=== PATIENT | male | born 1950 | race Caucasian/White ===

== ENCOUNTER → 2017-01-11 | Outpatient (CLI) | payer BC ==
[~2017-01-11] MED LIST: CLR10 PO; FLUT0.15 NAE; GLUCTAB7 PO; MULT-506 PO; OMEG10007 PO; PRAV20TA PO; SELE50TA2 PO; VENL50TA2 PO
[2017-01-11 12:23] LABS: ALT/SGPT 25 U/L (12-78); AST/SGOT 19 U/L (15-37); BLOOD UREA NITROGEN 13 mg/dl (7-18); BUN/CREATININE RATIO 14.3 (10-20); CARBON DIOXIDE 28 mmol/L (21-32); CHLORIDE 105 mmol/L (98-107); CHOLESTEROL 201 mg/dl (0-200); CREATININE 0.88 mg/dl (0.60-1.40); GLUCOSE 91 mg/dl (70-99); POTASSIUM 4.2 mmol/L (3.5-5.1); SODIUM 141 mmol/L (136-145); TRIGLYCERIDES 136 mg/dl (0-150); VERY LOW DENSITY LIPOPROT CALC 27 mg/dl
[2017-01-11 12:26] LABS: CALCIUM 9.2 mg/dl (8.5-10.1)
[2017-01-11 12:28] LABS: CHOLESTEROL/HDL RATIO 3.2; HDL CHOLESTEROL 62 mg/dl; LDL CHOLESTEROL CALCULATED 112 mg/dl
== END | disposition home or self-care (01) ==
LOC: C.LAB1850 10:42
PROVIDERS: ATTEND Internal Medicine
DX: E78.5 Hyperlipidemia, unspecified (principal); Z12.5 Encounter for screening for malignant neoplasm of prostate

== ENCOUNTER → 2017-05-10 | Outpatient (CLI) | payer BC ==
--- NOTE | 2017-05-10 17:06 | DIAGNOSTIC IMAGING REPORT ---
R FINGER(S) MIN 2 VIEWS ROUTINE CLINICAL HISTORY: 67 years-old Male presenting with W19.XXXA FallM79.89 Swelling of thumb, [id number]. TECHNIQUE: Frontal, oblique, and lateral views the right first finger were obtained. COMPARISON: None. FINDINGS: No acute fracture or subluxation. Mild degenerative change at the first carpometacarpal articulation. An ossific fragment at the base of the first metacarpal is distinctly separate from the trapezium. No apparent fracture donation site. This may be degenerative in etiology or represent a prominent sesamoid. The first metacarpophalangeal and interphalangeal articulations do not demonstrate significant degenerative change. No radiographic evidence of soft tissue swelling. No radiopaque foreign body. IMPRESSION: No convincing evidence of acute osseous injury of the right first finger. Ossific fragment at the base of the fifth metacarpal may be degenerative in etiology or represent a prominent sesamoid. Correlate clinically for point tenderness to exclude fracture in this region. Electronically signed by: Laith Christensen M.D. 05/10/2017 5:05 PM Dictated Date/Time: 05/10/2017 5:02 PM
== END | disposition home or self-care (01) ==
LOC: C.RAD1850 16:23
PROVIDERS: ATTEND Nurse Practitioner Adult Health
DX: M79.89 Other specified soft tissue disorders (principal); W19.XXXA Unspecified fall, initial encounter

== ENCOUNTER → 2017-07-13 | Outpatient (CLI) | payer BC ==
[2017-07-13 10:06] LABS: HEMATOCRIT 44.9 % (42-52); MEAN CELL VOLUME 95.5 fL (80-100); MEAN CORPUSCULAR HEMOGLOBIN 32.3 pg (25-34); MEAN CORPUSCULAR HGB CONC 33.9 g/dl (32-36); MEAN PLATELET VOLUME 9.9 fL (7.4-10.4); PLATELET COUNT 247 K/uL (130-400); WHITE BLOOD COUNT 5.35 K/uL (4.8-10.8)
[2017-07-13 10:45] LABS: ALT/SGPT 24 U/L (12-78); AST/SGOT 20 U/L (15-37); BLOOD UREA NITROGEN 13 mg/dl (7-18); BUN/CREATININE RATIO 17.5 (10-20); CALCIUM 9.2 mg/dl (8.5-10.1); CARBON DIOXIDE 29 mmol/L (21-32); CHLORIDE 103 mmol/L (98-107); CREATININE 0.75 mg/dl (0.60-1.40); GLUCOSE 93 mg/dl (70-99); SODIUM 135 mmol/L (136-145)
[2017-07-13 10:48] LABS: CHOLESTEROL 182 mg/dl (0-200); CHOLESTEROL/HDL RATIO 2.5; HDL CHOLESTEROL 74 mg/dl; LDL CHOLESTEROL CALCULATED 84 mg/dl; TRIGLYCERIDES 121 mg/dl (0-150); VERY LOW DENSITY LIPOPROT CALC 24 mg/dl
== END | disposition home or self-care (01) ==
LOC: C.LAB1850 09:23
PROVIDERS: ATTEND Internal Medicine
DX: E78.5 Hyperlipidemia, unspecified (principal); M79.644 Pain in right finger(s)

== ENCOUNTER 2017-08-26 21:10 | Emergency (ER) | payer BC ==
[~2017-08-26] VITALS: Ht 165.1 cm; Wt 72.5 kg
[2017-08-26 21:19] VITALS: TEMP 36.5; Ht 165.1 cm; Wt 72.5 kg
[2017-08-26] MEDS ORDERED: AMOXICILLIN/CLAVULANATE TAB 875 MG TAB PO ONE (21:45)
[2017-08-26] MEDS ORDERED: DIPHTHERIA/TETANUS/PERTUSSIS 0.5 ML SYR/VIAL IM. ONE (21:45)
[2017-08-26] MEDS ORDERED: EMPTY 8 DRAM VIAL ONE (21:49)
[2017-08-26] MEDS ORDERED: AMOX875T PO (22:15)
--- NOTE | 2017-08-26 22:16 | EMERGENCY ROOM VISIT NOTE ---
ED Visit Note First contact with patient: 21:23 CHIEF COMPLAINT: Multiple dog bites HPI: Patient is a left-hand dominant 67-year-old white male who presents to the emergency department for evaluation of several dog bites that he sustained just prior to arrival. 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 The wounds were cleansed at the facility and dressed. He reports that the dogs rabies vaccinations are current. He reports that his tetanus is due this year. He complains primarily of pain at the left fourth finger. Bleeding has been controlled. REVIEW OF SYSTEMS: Review of systems as per HPI. All other systems reviewed were negative. At least 6 systems reviewed.. PMH: Electronic medical records are reviewed and summarized as above/below. See Problem List. SOCIAL HISTORY: Patient lives at home alone. He is retired. Nonsmoker. PHYSICAL EXAM: Vital Signs: Reviewed Nurse's notes. CONSTITUTIONAL: Patient is a pleasant 87-year-old white male who is awake and alert and in no acute distress. INTEGUMENTARY: The patient has a superficial puncture in the medial left eyebrow. He also has several tiny punctures on the dorsum of the left fourth finger, primarily over the PIP joint, and one at the base of the nail with some slight bruising under the nail bed. He has 2 small punctures noted just inferior to the vermilion border of the left bottom lip. He has swelling and bruising of the left upper and left bottom lip, without mucosal injury or repairable laceration. MUSCULOSKELETAL: Full range of motion of the left fourth finger. Minor bony tenderness at the PIP joint. EMERGENCY DEPARTMENT COURSE: The patient was seen and evaluated as above. His tetanus was updated and he was given his first dose of Augmentin in the emergency department. Right fourth finger x-rays were obtained and were unremarkable. He has several superficial punctures from multiple dog bites, however none require closure with sutures. Wounds were cleansed with saline and dressed with antibiotic ointment and a bandage were needed. The patient was educated on the signs and symptoms of infection for which he should return to the emergency department. He was discharged home in good condition. Medication reconciliation: I attest that I have personally reviewed the patient' s current medication list. Blood pressure screening: Patient was found to have a slightly elevated blood pressure due to circumstances. I do not believe that the patient requires hypertension monitoring. Problem List Medical Problems: (1) Cystic Kidney Disease, Unspecified Status: Chronic (2) Diverticulitis Colon (W/O Ment Of Hemorrhage) Status: Resolved (3) Dog bite of ear Status: Resolved (4) Dog bite of right thumb Status: Resolved (5) Elevated blood pressure Status: Resolved (6) Hyperlipidemia Nec/Nos Status: Chronic (7) Hypertrophy (Benign) Of Prostate W/O Urinary Obst & Oth Luts Status: Chronic (8) Laceration of left earlobe Status: Resolved Current/Historical Medications Scheduled Amoxicillin & Pot Clavulanate (Augmentin 875-125 mg), 1 TAB PO BID Fish Oil (Nancy-3), 1 CAP PO QAM Fluticasone Propionate (Nasal) (Flonase Allergy Relief), 2 SPRAY RYAN HS Fzaalucpjam-Ckulwvmmstd-Vgc C- (Glucosamine Chondroitin), 1 TAB PO QAM Loratadine (Claritin), 10 MG PO QAM Multivitamin (Multivitamin), 1 TAB PO DAILY Pravastatin (Pravachol ), 20 MG PO HS Selenium (Selenium), 1 TAB PO QAM Venlafaxine Hcl (Effexor), 50 MG PO QAM Allergies Coded Allergies: No Known Allergies (Verified , 04/14/16) Vital Signs Date Time Temp Pulse Resp B/P (MAP) Pulse Ox O2 Delivery O2 Flow Rate FiO2 08/26/17 21:19 36.5 111 18 159/100 99 Room Air Medications Administered Medications (Trade) Dose Ordered Sig/Jose Luis Route Start Time Stop Time Status Last Admin Dose Admin Diphtheria/ Pertussis/Tetanus Vacc (Adacel Inj) 0.5 ml ONCE ONCE IM. 08/26/17 21:45 08/26/17 21:46 DC 08/26/17 21:53 0.5 ML Amoxicillin/ Clavulanate Potassium (Augmentin Tab) 1,750 mg UD ONCE PO 08/26/17 21:45 08/26/17 21:46 DC 08/26/17 21:52 1,750 MG Departure Information Impression Primary Impression: Dog bite of face Additional Impression: Dog bite of finger Prescriptions Amoxicillin & Pot Clavulanate (Augmentin 875-125 mg) 1 Tab Tab 1 TAB PO BID, #14 TAB Prov: Sharon Torres PA 08/26/17 Referrals Reyes Poe M.D. (PCP) Patient Instructions My [facility] Additional Instructions Augmentin 875 mg: Take one pill 2 times daily for 7 days to prevent infection. All antibiotics can cause diarrhea. If this occurs and you feel worse or it does not resolve in 1-2 days follow up with your doctor or return to the Emergency Department as this could be signs of serious underlying problems. Any medication can cause an allergic reaction, stop the pills immediately and return to the ER for rash, hives, breathing difficulties, or swelling. Ibuprofen(Motrin, Advil) may be used for fever or pain. Use 600mg every six hours as needed. Take with food. Avoid using more than 2400mg in a 24 hour period. Do not use 2400mg per day for more than three consecutive days without physician direction. Prolonged inappropriate use can lead to stomach upset or ulcers. (AND/OR) Acetaminophen(Tylenol) may be used for fever or pain. Use 1000mg every six hours as needed. Avoid using more than 3000mg in a 24 hour period. Clean wounds daily with mild soap and water. Cover with antibiotic ointment and a bandage (if needed) until healed. Ice and elevate for swelling and pain. Return to the emergency department for any signs of infection. Problem Qualifiers Primary Impression: Dog bite of face Encounter type: initial encounter Qualified Codes: S01.85XA - Open bite of other part of head, initial encounter; W54.0XXA - Bitten by dog, initial encounter Additional Impression: Dog bite of finger Encounter type: initial encounter Qualified Codes: S61.259A - Open bite of unspecified finger without damage to nail, initial encounter; W54.0XXA - Bitten by dog, initial encounter
--- NOTE | 2017-08-26 22:18 | EMERGENCY ROOM VISIT NOTE ---
ED Visit Note First contact with patient: 21:23 Patient was seen by our PA/PATIENT FINANCIAL SERVICES COORDINATOR. I was involved in the patient's care and did evaluate the patient myself. I was involved in the care throughout the ER stay. The patient the patient presents with a dog bite. Nothing requires suturing. He was given Augmentin and is being discharged on this medication. He will watch for infection.
--- NOTE | 2017-08-26 22:23 | DIAGNOSTIC IMAGING REPORT ---
L FINGER(S) MIN 2 VIEWS ROUTINE CLINICAL HISTORY: LEFT 4TH FINGER, DOG BITE trauma COMPARISON: None. DISCUSSION: Cortical fracture base distal phalanx fourth finger. Moderate soft tissue edema. No evidence of dislocation. IMPRESSION: Small cortical fracture base distal phalanx left fourth finger. Soft tissue edema. The above report was generated using voice recognition software. It may contain grammatical, syntax or spelling errors. Electronically signed by: Blair Vang M.D. 08/26/2017 10:21 PM Dictated Date/Time: 08/26/2017 10:21 PM
[2017-08-26 22:25] VITALS: BP 154/95; PULSE 99; O2SAT 94
== END 2017-08-26 22:26 | disposition home or self-care (01) ==
LOC: C.EDB 21:11 → C.EDD 22:26
DX: S62.665A Nondisplaced fracture of distal phalanx of left ring finger, initial encounter for closed fracture (principal); S61.255A Open bite of left ring finger without damage to nail, initial encounter; S01.152A Open bite of left eyelid and periocular area, initial encounter; S01.551A Open bite of lip, initial encounter; W54.0XXA Bitten by dog, initial encounter; Q61.9 Cystic kidney disease, unspecified; N40.0 Benign prostatic hyperplasia without lower urinary tract symptoms; E78.5 Hyperlipidemia, unspecified; Z79.899 Other long term (current) drug therapy

== ENCOUNTER → 2018-01-03 | Outpatient (CLI) | payer BC ==
[2018-01-03 11:16] LABS: ALT/SGPT 21 U/L (12-78); AST/SGOT 16 U/L (15-37); BLOOD UREA NITROGEN 14 mg/dl (7-18); CALCIUM 9.2 mg/dl (8.5-10.1); CARBON DIOXIDE 33 mmol/L (21-32); CHOLESTEROL 204 mg/dl (0-200); CREATININE 0.84 mg/dl (0.60-1.40); GLUCOSE 89 mg/dl (70-99); LDL CHOLESTEROL CALCULATED 110 mg/dl; POTASSIUM 4.2 mmol/L (3.5-5.1); SODIUM 138 mmol/L (136-145)
== END | disposition home or self-care (01) ==
LOC: C.LAB1850 09:32
PROVIDERS: ATTEND Internal Medicine
DX: Z12.5 Encounter for screening for malignant neoplasm of prostate (principal); E78.5 Hyperlipidemia, unspecified

== ENCOUNTER 2024-04-19 17:20 | Observation (INO) ==
[2024-04-19] MEDS: SODIUM CHLORIDE 0.9% 1,000 ML IV STA (17:57)
[2024-04-19 18:03] LABS: Eosinophils # (auto) 0.13 K/uL (0.00-0.50); Eosinophils % (auto) 1.4 %; Hematocrit (blood only) 51.7 % (42.0-52.0); Hemoglobin 17.4 g/dl (14.0-18.0); Immature Granulocytes # (auto) 0.05 K/uL (0.01-0.20); Immature Granulocytes % (auto) 0.5 %; Lymphocytes # (auto) 2.37 K/uL (1.20-3.40); Lymphocytes % (auto) 24.9 %; Mean Corpuscular Hemoglobin 31.6 pg (25.0-34.0); Mean Corpuscular Hgb Conc 33.7 g/dL (32.0-36.0); Mean Platelet Volume 9.7 fL (9.4-12.4); Monocytes # (auto) 0.66 K/uL (0.11-0.59); Monocytes % (auto) 6.9 %; Neutrophils # (auto) 6.22 K/uL (1.40-6.50); Neutrophils % (auto) 65.3 %; Platelet Count 264 K/uL (130-400); RDW Coefficient of Variation 12.6 % (11.5-14.5); RDW Standard Deviation 43.7 fL (36.4-46.3); White Blood Count 9.53 K/ul (4.8-10.8)
[2024-04-19 18:19] LABS: Albumin Globulin Ratio 1.3 (0.9-2); Albumin Level 4.7 gm/dl (3.4-5.0); BUN Creatinine Ratio 15.9 (10-20); Calcium 9.7 mg/dl (8.6-10.3); Creatinine Clr Calc Pharmacy 67.2 ml/min; Est GFR (African American) 99.5 ml/min; Est GFR (Non-African American) 85.8 ml/min; Globulin 3.7 gm/dl (2.5-4.0); Potassium 3.9 mmol/L (3.5-5.1); Total Protein 8.4 gm/dl (6.0-8.3)
[2024-04-19] MEDS: METOPROLOL TARTRATE 1 MG/ML VIAL IV STA ×2 (18:24→21:28)
--- NOTE | 2024-04-19 18:24 | Emergency Department Note ---
Impression & Plan Dysrhythmia, Tachycardia ED Provider Note HISTORY OF PRESENT ILLNESS: Patient is a 74-year-old male presenting with palpitations. Patient reports that for the last 2 days he has been having the sensation that his heart is racing. He denies any chest pain. Reports that when his heart rate is very high he does feel slightly short of breath. Denies any DVT or PE history. He follows with cardiology for his tachycardia and is on metoprolol 100 mg daily. He denies taking any extra doses of his metoprolol today. He denies any recent changes to medications. He denies any anticoagulation use. Denies recent sick contact exposures or recent fevers. Patient reports that today with his episodes of his heart racing, he felt very faint like he was going to pass out. ROS: as above PHYSICAL EXAM: Constitutional: Patient appears in no acute distress. HENT: Head: Normocephalic and atraumatic. Eyes: EOMI, PERRL Mouth/Throat: Mucous membranes moist. Neck: Trachea midline. Neck supple. Cardiovascular: Tachycardic with regular rhythm. No murmurs, rubs or gallops. Intact distal pulses. Pulmonary/Chest: No respiratory distress. Breath sounds clear and equal bilaterally. No wheezes or rales. Abdominal: Abdomen soft, no tenderness, rebound or guarding. Musculoskeletal: No edema, tenderness or deformity noted. Skin: Warm and dry. No rash, erythema, pallor or cyanosis Psychiatric: Appropriate mood and affect for situation. Neurological: Alert and keenly responsive. CN II-XII grossly intact, moving all extremities equally and fully. MDM: - Vitals signs showed hypertension and tachycardia. - History obtained via patient. History as above. - Chronic conditions affecting care: HLD; anxiety - Differential diagnoses include, but are not limited to: Dysrhythmia; ACS; PE; electrolyte abnormality; dehydration - Order placed for continuous cardiac monitoring. At this time, monitor showed rate of 110 bpm with regular rhythm, per my interpretation. - External medical records reviewed. Cardiology visit note dated 09/01/2023 was reviewed. Patient follows in their clinic for his history of SVT. His metoprolol was increased to 100 mg daily. - EKG interpreted by myself showed atrial fibrillation. Rate tachycardic at 152 bpm. QT 284. No acute ischemic changes. - Laboratory workup interpreted by myself showed normal WBC; stable electrolytes; elevated dimer; normal troponin; slightly elevated lipase (83) - CXR negative for pneumonia, per my interpretation - CT PE negative for PE. Noted to have a right upper lobe pulmonary micronodule. - Patient given 1L NS with minimal improvement in his heart rate. He was given 5 mg IV Lopressor and his heart rate went from 160s to the low 120s to 130s. Patient was given additional 5 mg IV Lopressor with improvement of his heart rate to the low 100s. - Patient is noted to have significant dysrhythmia on telemetry. He appears to go into an atrial fibrillation with rapid rate but then will switch back into a sinus tachycardia. He occasionally has what looks like atrial tachycardia with a heart rate in the 160s, as he has multiple P waves that do not always conduct QRS complexes. - Discussion was had with pillowcase turner about patient's case and need for admission - Hospitalist, Dr. Friedman, consulted for admission - Patient admitted to [facility] service for further evaluation and management. ASSESSMENT AND PLAN: Diagnosis: Dysrhythmia; tachycardia Plan: Admit Past Med/Surg History Problem List (Updated 04/19/24 @ 23:06 by Miley Benitez MD) Tachycardia (Acute) Dysrhythmia (Acute) Supraventricular tachycardia Hyperlipidemia Vascular calcification Degenerative arthritis of knee, bilateral History of colon polyps Adjustment disorder with anxiety (Acute) Eczema (Acute) Osteoarthritis of cervical and lumbar spine (Acute) Medical History Hypercholesterolemia Osteoarthritis Anxiety History of diverticular abscess of colon History of basal cell carcinoma Diverticulitis, colon BPH w urinary obs/LUTS Adenomatous colon polyp Surgical History History of cataract surgery History of colonoscopy History of arthroscopy of left knee History of tonsillectomy S/P colectomy S/P lymph node biopsy Family History Father Dementia Mother Macular degeneration Sister Breast cancer Brother Myocardial infarction Atrial fibrillation Denies family history of Ovarian cancer Prostate cancer Lung cancer Colorectal cancer Cancer Social History Smoking Status: Former smoker Tobacco Type: Cigarettes Second Hand Exposure: No; Do You Dip or Chew Tobacco: No; Hx Alcohol Use: Yes Alcohol type: hard liquor Hx Substance Use: Yes Substance Use Type Other:: MARIJUANA> JUST AVERAGE FEW TIMES PER WEEK Preferred Language: Iraqi Communication Ability: Effective Visual Impairment: No Limitations Hearing Ability: Normal Zoology Professor Required: No Beliefs That Will Affect Care: None marital status: Single Current Living Situation: Significant Other current occupational status: retired How many Children do You have: 0 Feels Safe at Home: Yes Childhood Exposure to Second-Hand Smoke: Yes caffeine: Yes Dental Care, Regularly: Yes Physical Activity Frequency: 3-4 Times per Week Seatbelt Use: always Sunscreen Use: No Assistive Devices: Glasses Allergies Allergies Allergy/AdvReac Type Severity Reaction Status Date / Time No Known Allergies Allergy Verified 01/25/24 14:18 Home Meds Home Medications Medication Instructions Recorded Confirmed ascorbic acid (vitamin C) 500 mg 500 mg PO BID 07/18/19 04/19/24 tablet loratadine 10 mg capsule 10 mg PO DAILY PRN Allergy Symptoms 07/18/19 04/19/24 coenzyme Q10 100 mg capsule 100 mg PO QAM 09/17/19 04/19/24 fluticasone propionate 50 1 sprays intranasal DAILY PRN 09/17/19 04/19/24 mcg/actuation nasal Allergy Symptoms spray,suspension glucosamine sulfate 500 mg tablet 500 mg PO BID 09/17/19 04/19/24 (Glucosamine) vitamins A,C,O-goit-nrbhgw 4,296 1 cap PO BID 09/17/19 04/19/24 mcg-226 mg-90 mg capsule (PreserVision AREDS) cholecalciferol (vitamin D3) 50 50 mcg PO DAILY 01/16/23 04/19/24 mcg (2,000 unit) capsule (Vitamin D3) diclofenac sodium 1 % topical gel 4 g topical QID PRN Pain 01/27/23 04/19/24 (Voltaren Arthritis Pain) Previous Rx's Medication Instructions Recorded pravastatin 20 mg tablet 20 mg PO HS #90 tabs 07/20/23 venlafaxine 50 mg tablet 50 mg PO QAM #90 tabs 07/20/23 metoprolol succinate 100 mg 100 mg PO DAILY #90 tabs 09/01/23 tablet,extended release 24 hr Results & Data (ED) Vital Signs Vital Signs - 24 hr 04/19/24 17:25 04/19/24 17:54 04/19/24 18:00 Temperature 36.9 C Temperature Source Oral Pulse Rate 114 H 129 H 160 H Pulse Rate [Apical] Pulse Rate from SpO2 Sensor 136 H Pulse Rhythm [Apical] Respiratory Rate 18 24 Respiratory Effort / Characteristics Non-Labored Spontaneous Respiratory Depth Normal Respiratory Pattern Blood Pressure 117/94 139/108 H Blood Pressure [Left Arm] Blood Pressure Mean 101 118 Blood Pressure Mean [Left Arm] Blood Pressure Position [Left Arm] Pulse Oximetry 98 96 Oxygen Delivery Method Room Air Sepsis Recent Fever Within 48 Hours No Sepsis New/Unexplained Change in Mental Status No Sepsis Action Taken by Nursing No Action Required 04/19/24 19:00 04/19/24 20:47 04/19/24 21:28 Temperature Temperature Source Pulse Rate 121 H 135 H Pulse Rate [Apical] 115 H Pulse Rate from SpO2 Sensor Pulse Rhythm [Apical] Irregular Respiratory Rate 16 16 Respiratory Effort / Characteristics Non-Labored Spontaneous Respiratory Depth Normal Respiratory Pattern Regular Blood Pressure 118/80 143/76 H Blood Pressure [Left Arm] 116/80 Blood Pressure Mean 92 Blood Pressure Mean [Left Arm] 92 Blood Pressure Position [Left Arm] Semi-fowlers Pulse Oximetry 95 95 Oxygen Delivery Method Room Air Room Air Sepsis Recent Fever Within 48 Hours Sepsis New/Unexplained Change in Mental Status Sepsis Action Taken by Nursing 04/19/24 22:56 Temperature Temperature Source Pulse Rate Pulse Rate [Apical] 106 H Pulse Rate from SpO2 Sensor Pulse Rhythm [Apical] Respiratory Rate 16 Respiratory Effort / Characteristics Non-Labored Spontaneous Respiratory Depth Normal Respiratory Pattern Regular Blood Pressure Blood Pressure [Left Arm] 123/87 Blood Pressure Mean Blood Pressure Mean [Left Arm] 99 Blood Pressure Position [Left Arm] Semi-fowlers Pulse Oximetry 93 Oxygen Delivery Method Room Air Sepsis Recent Fever Within 48 Hours Sepsis New/Unexplained Change in Mental Status Sepsis Action Taken by Nursing Laboratory Data 04/19/24 17:40 04/19/24 17:40 Lab Results 04/19/24 Range/Units 17:40 WBC 9.53 (4.8-10.8) K/ul RBC 5.50 (4.70-6.10) M/uL Hgb 17.4 (14.0-18.0) g/dl Hct 51.7 (42.0-52.0) % MCV 94.0 (80.0-100.0) fL MCH 31.6 (25.0-34.0) pg MCHC 33.7 (32.0-36.0) g/dL RDW Std Deviation 43.7 (36.4-46.3) fL RDW Coeff of Emily 12.6 (11.5-14.5) % Plt Count 264 (130-400) K/uL MPV 9.7 (9.4-12.4) fL Immature Gran % (Auto) 0.5 % Neut % (Auto) 65.3 % Lymph % (Auto) 24.9 % [place] % (Auto) 6.9 % Eos % (Auto) 1.4 % Baso % (Auto) 1.0 % Neut # (Auto) 6.22 (1.40-6.50) K/uL Lymph # (Auto) 2.37 (1.20-3.40) K/uL [place] # (Auto) 0.66 H (0.11-0.59) K/uL Eos # (Auto) 0.13 (0.00-0.50) K/uL Baso # (Auto) 0.10 (0.00-0.20) K/uL Immature Gran # (Auto) 0.05 (0.01-0.20) K/uL D-Dimer 1270 H* (0-500) ug/L FEU Sodium 139 (136-145) mmol/L Potassium 3.9 (3.5-5.1) mmol/L Chloride 105 (98-107) mmol/L Carbon Dioxide 24 (21-32) mmol/L Anion Gap 10 (3-11) BUN 14 (6-23) mg/dl Creatinine 0.88 (0.6-1.4) mg/dl Est Cr Clr Drug Dosing 67.2 ml/min Est GFR ( Amer) 99.5 ml/min Est GFR (Non-Af Amer) 85.8 ml/min BUN/Creatinine Ratio 15.9 (10-20) Glucose 158 H (70-99(Fasting)) mg/dl Calcium 9.7 (8.6-10.3) mg/dl Total Bilirubin 1.0 (0.2-1.0) mg/dl AST 25 (13-39) U/L ALT 22 (7-52) U/L Alkaline Phosphatase 94 (34-104) U/L Troponin I High Sens 5.5 (0-20) pg/ml Total Protein 8.4 H (6.0-8.3) gm/dl Albumin 4.7 (3.4-5.0) gm/dl Globulin 3.7 (2.5-4.0) gm/dl Albumin/Globulin Ratio 1.3 (0.9-2) Lipase 83 H (11-82) U/L Administered Medications Discontinued Medications Sodium Chloride (Nss) 1,000 mls @ 999 mls/hr IV .Q1H1M STA Stop: 04/19/24 18:31 Last Infusion: 04/19/24 18:58 Dose: Infused Documented By: Admin: 04/19/24 17:57 Dose: 999 mls/hr Documented By: JT Sodium Chloride (Nss) 1,000 mls @ 999 mls/hr IV .Q1H1M ONE Stop: 04/19/24 18:41 Last Admin: 04/19/24 19:13 Dose: Not Given Documented By: JERRY Ioversol (Optiray 320 125ml) 119 ml IV ONCE ONE Stop: 04/19/24 20:27 Last Admin: 04/19/24 20:27 Dose: 119 ml Documented By: CASS Metoprolol Succinate (Metoprolol Succ 50mg Ext Rel Tab) 50 mg PO NOW STA Stop: 04/19/24 22:07 Last Admin: 04/19/24 23:01 Dose: 50 mg Documented By: JERRY Metoprolol Tartrate (Metoprolol Tartrate 1 Mg/Ml Vial) 5 mg IV NOW STA Stop: 04/19/24 18:20 Last Admin: 04/19/24 18:24 Dose: 5 mg Documented By: DELIO Metoprolol Tartrate (Metoprolol Tartrate 1 Mg/Ml Vial) 5 mg IV NOW STA Stop: 04/19/24 21:06 Last Admin: 04/19/24 21:28 Dose: 5 mg Documented By: JERRY Imaging Data Radiologist's Impression: Chest X-Ray 04/19/24 17:31 SINGLE VIEW CHEST CLINICAL HISTORY: Atypical chest pain FINDINGS: An AP, portable, upright chest radiograph is compared to study dated 01/16/2023. The heart is mildly enlarged noting atherosclerotic calcification of the thoracic aorta. The pulmonary vasculature is noncongested. There is mild chronic elevation of the right hemidiaphragm and bibasilar atelectasis. The lungs and pleural spaces are otherwise clear. No pneumothorax is seen. The skeletal structures are osteopenic. The bony thorax is grossly intact. IMPRESSION: Cardiomegaly with no active disease in the chest. ACT 112: Negative or not required by law. Electronically signed by: Jevean Santos M.D. 04/19/2024 7:08 PM Chest CTA 04/19/24 19:07 Exam(s): CTA CHEST EXAM: CT Angiography Chest With Intravenous Contrast CLINICAL HISTORY: Reason for exam: PE. TECHNIQUE: Axial computed tomographic angiography images of the chest with intravenous contrast. CTDI is 29.3 mGy and DLP is 645.66 mGy-cm. Automated exposure control was utilized for the study. A dose lowering technique was utilized adhering to the principles of ALARA. MIP reconstructed images were created and reviewed. COMPARISON: No relevant prior studies available. FINDINGS: Pulmonary arteries: Good pulmonary artery opacification. Mildly enlarged main pulmonary artery suggests pulmonary arterial hypertension. No evidence of pulmonary embolism. Aorta: No acute findings. No aortic aneurysm. Lungs: Subsegmental atelectasis at the lung bases. Mild emphysema. No consolidation. No mass. Right upper lobe pulmonary micronodule measuring 3 mm (series 4, image 147). Pleural space: Unremarkable. No significant effusion. No pneumothorax. Heart: Coronary artery atherosclerosis. No cardiomegaly or pericardial effusion. Bones/joints: No acute fracture. No dislocation. Soft tissues: Unremarkable. Lymph nodes: Unremarkable. No enlarged lymph nodes. IMPRESSION: 1. No evidence of pulmonary embolism. 2. Right upper lobe pulmonary micronodule measuring 3 mm (series 4, image 147). Fleischner Society Guidelines for low-risk or high-risk patients recommend that one should consider chest CT at 12 months due to the location of this nodule. Electronically signed by: Rubén Garcia M.D. 04/19/24 20:47 PM Discharge Plan Visit Data Chief Complaint: Arrhythmia/Palpitations Stated Complaint: RAPID HEART BEAT, FEEL FAINT ED Provider: Miley Benitez Discharge Problem: Dysrhythmia, Tachycardia Discharge Instructions Interventions: ED Discharge Assessment Last Done: 04/19/24 22:58 Forms Stand Alone Forms: My [facility] Prescriptions Prescriptions: No Action pravastatin 20 mg tablet 20 mg PO HS Qty: 90 3RF venlafaxine 50 mg tablet 50 mg PO QAM Qty: 90 3RF metoprolol succinate 100 mg tablet extended release 24 hr 100 mg PO DAILY Qty: 90 3RF loratadine 10 mg capsule 10 mg PO DAILY PRN (Reason: Allergy Symptoms) ascorbic acid (vitamin C) 500 mg tablet 500 mg PO BID diclofenac sodium [Voltaren Arthritis Pain] 1 % gel 4 g topical QID PRN (Reason: Pain) Rx Instructions: apply to single knee glucosamine sulfate [Glucosamine] 500 mg tablet 500 mg PO BID fluticasone propionate 50 mcg/actuation spray,suspension 1 sprays INTNAS DAILY PRN (Reason: Allergy Symptoms) coenzyme Q10 100 mg capsule 100 mg PO QAM PreserVision AREDS 14,320-226-200 oegg-gz-aumb capsule 1 cap PO BID cholecalciferol (vitamin D3) [Vitamin D3] 50 mcg (2,000 unit) Capsule 50 mcg PO DAILY Referrals Referrals: Pro,Reyes Rick MD [Primary Care Provider] -
[2024-04-19 18:26] LABS: Troponin I High Sensitivity 5.5 pg/ml (0-20)
[2024-04-19 19:06] LABS: D Dimer 1270 ug/L FEU (0-500)
--- NOTE | 2024-04-19 19:10 | XRay Report ---
SINGLE VIEW CHEST CLINICAL HISTORY: Atypical chest pain FINDINGS: An AP, portable, upright chest radiograph is compared to study dated 01/16/2023. The heart is mildly enlarged noting atherosclerotic calcification of the thoracic aorta. The pulmonary vasculatur e is noncongested. There is mild chronic elevation of the right hemidiaphragm and bibasilar atelectas is. The lungs and pleural spaces are otherwise clear. No pneumothorax is seen. The skeletal structure s are osteopenic. The bony thorax is grossly intact. IMPRESSION: Cardiomegaly with no active disease in the chest. ACT 112: Negative or not required by law. Electronically signed by: Jeevan Santos M.D. 04/19/2024 7:08 PM
[2024-04-19] MEDS: SODIUM CHLORIDE 0.9% 1,000 ML IV ONE (19:13)
[2024-04-19] MEDS: OPTIRAY 320 125ml IV ONE (20:27)
--- NOTE | 2024-04-19 20:48 | CT Scan Report ---
Exam(s): CTA CHEST EXAM: CT Angiography Chest With Intravenous Contrast CLINICAL HISTORY: Reason for exam: PE. TECHNIQUE: Axial computed tomographic angiography images of the chest with intravenous contrast. CTDI is 29.3 mGy and DLP is 645.66 mGy-cm. Automated exposure control was utilized for the study. A dose lowering technique was utilized adhering to the principles of ALARA. MIP reconstructed images were created and reviewed. COMPARISON: No relevant prior studies available. FINDINGS: Pulmonary arteries: Good pulmonary artery opacification. Mildly enlarged main pulmonary artery suggests pulmonary arterial hypertension. No evidence of pulmonary embolism. Aorta: No acute findings. No aortic aneurysm. Lungs: Subsegmental atelectasis at the lung bases. Mild emphysema. No consolidation. No mass. Right upper lobe pulmonary micronodule measuring 3 mm (series 4, image 147). Pleural space: Unremarkable. No significant effusion. No pneumothorax. Heart: Coronary artery atherosclerosis. No cardiomegaly or pericardial effusion. Bones/joints: No acute fracture. No dislocation. Soft tissues: Unremarkable. Lymph nodes: Unremarkable. No enlarged lymph nodes. IMPRESSION: 1. No evidence of pulmonary embolism. 2. Right upper lobe pulmonary micronodule measuring 3 mm (series 4, image 147). Fleischner Society Guidelines for low-risk or high-risk patients recommend that one should consider chest CT at 12 months due to the location of this nodule. Electronically signed by: Rubén Garcia M.D. 04/19/24 20:47 PM
--- NOTE | 2024-04-19 22:11 | History & Physical Report ---
Date of Service April 19, 2024 Assessment & Plan (1) Dysrhythmia: Plan: 74yo male presenting with feeling of near syncope. Found to be in tachyarrhythmia on monitor. Appears to be atrial fibrillation, possibly atrial flutter on EKG give rate of 152 and resistance to medications? Patient with no prior record of atrial fibrillation/atrial flutter. He has had SVT in the past for which he was taking Metoprolol. Patient has been given several doses of IV Metoprolol as well as PO Metoprolol with minimal improvement in rate -Will give Diltiazem 10mg IV now -Continue metoprolol 100mg po daily -HRMDP-0-Jzmy score 2 based on age - recommend initiating anticoagulation with Eliquis - patient with no contraindication to such -Check 2D echo -Consider Cardiology consultation if rate remains elevated (2) Elevated d-dimer: Plan: Elevated D-dimer of 1270 -CTA Chest NEGATIVE FOR PE (3) Lung nodule: Plan: RUL pulmonary micronodule measuring 3mm -Followup as necessary Plan Chronic Medical Conditions: Hyperlipidemia -Continue Pravastatin Anxiety -Continue Venlafaxine F/E/N - LR at 125mL/hr x 1L ordered, electrolytes WNL PPx - Apixaban Code- Full Dispo - Admit to PCU History of Present Illness Chief Complaint: tachycardia, new atrial fibrillation Primary Care Provider: Reyes Poe MD Bharat Mendez is a 74yo male with history of HLP, Anxiety and prior episodes of SVT presenting with new onset atrial fibrillation. Patient notes increased heart rate over the last two days. He was monitoring his HR with his Cardio-Mobile at home. He has been NSR on occasion the likely atrial fibrillation and undetermined rhythm. Patient denies cheset pain or palpitations but has had the recurrent sensation that he was going to pass out. He has some shortness of breath as well. Otherwise denies fever, chills, abdominal pain, nausea, vomiting, diarrhea. He rarely drinks EtOH, minimal caffeine intake and has not been using OTC Medications or stimulants. No prior AF. He did have SVT in the past - experienced palpitations at that time. He has been on metoprolol. Was following with Cardiology - last seen in August 2023. Some discussion about ablation but patient has been well controlled with medications. Allergies Allergy/AdvReac Type Severity Reaction Status Date / Time No Known Allergies Allergy Verified 01/25/24 14:18 Home Medications Medication Instructions Recorded Confirmed Type ascorbic acid (vitamin C) 500 mg 500 mg PO BID 07/18/19 04/19/24 History tablet loratadine 10 mg capsule 10 mg PO DAILY PRN Allergy Symptoms 07/18/19 04/19/24 History coenzyme Q10 100 mg capsule 100 mg PO QAM 09/17/19 04/19/24 History fluticasone propionate 50 1 sprays intranasal DAILY PRN 09/17/19 04/19/24 History mcg/actuation nasal Allergy Symptoms spray,suspension glucosamine sulfate 500 mg tablet 500 mg PO BID 09/17/19 04/19/24 History (Glucosamine) vitamins A,C,B-prbe-cajxdb 4,296 1 cap PO BID 09/17/19 04/19/24 History mcg-226 mg-90 mg capsule (PreserVision AREDS) cholecalciferol (vitamin D3) 50 50 mcg PO DAILY 01/16/23 04/19/24 History mcg (2,000 unit) capsule (Vitamin D3) diclofenac sodium 1 % topical gel 4 g topical QID PRN Pain 01/27/23 04/19/24 History (Voltaren Arthritis Pain) pravastatin 20 mg tablet 20 mg PO HS #90 tabs 07/20/23 04/19/24 Rx venlafaxine 50 mg tablet 50 mg PO QAM #90 tabs 07/20/23 04/19/24 Rx metoprolol succinate 100 mg 100 mg PO DAILY #90 tabs 09/01/23 04/19/24 Rx tablet,extended release 24 hr Past Med/Surg History Problem List (Updated 04/20/24 @ 07:28 by Bethanie Friedman DO) Lung nodule Elevated d-dimer Tachycardia (Acute) Dysrhythmia (Acute) Supraventricular tachycardia Hyperlipidemia Vascular calcification Degenerative arthritis of knee, bilateral History of colon polyps Adjustment disorder with anxiety (Acute) Eczema (Acute) Osteoarthritis of cervical and lumbar spine (Acute) Medical History Hypercholesterolemia Osteoarthritis Anxiety History of diverticular abscess of colon PT REPORTS HX ABCESS OF COLON/SURGERY FOR History of basal cell carcinoma & REMOVED Diverticulitis, colon BPH w urinary obs/LUTS DENIES Adenomatous colon polyp HX COLON POLYP Surgical History History of cataract surgery LEFT/ RIGHT History of colonoscopy History of arthroscopy of left knee History of tonsillectomy S/P colectomy HX Partial, Sigmoid S/P lymph node biopsy Family History Father Dementia Mother Macular degeneration Sister Breast cancer Brother Myocardial infarction Atrial fibrillation Denies family history of Ovarian cancer Prostate cancer Lung cancer Colorectal cancer Cancer Social History Smoking Status: Former smoker Tobacco Type: Cigarettes Second Hand Exposure: No; Do You Dip or Chew Tobacco: No; Tobacco Cessation Education Requested by Patient: No Hx Alcohol Use: Yes Alcohol type: hard liquor Hx Substance Use: No Preferred Language: Moldovan Communication Ability: Effective Visual Impairment: No Limitations Hearing Ability: Normal Shipping Agent Required: No Beliefs That Will Affect Care: None marital status: Single Current Living Situation: Alone current occupational status: retired How many Children do You have: 0 Other Information That Helps Us Care for You: No Feels Safe at Home: Yes Safety Concerns: Feels Safe At This Time Childhood Exposure to Second-Hand Smoke: Yes caffeine: Yes Dental Care, Regularly: Yes Physical Activity Frequency: 3-4 Times per Week Seatbelt Use: always Sunscreen Use: No Assistive Devices: Glasses Review of Systems Review of Systems: All systems reviewed & are unremarkable except as noted in HPI & below Physical Exam Physical Exam: General: patient resting comfortably, NAD, non-toxic in appearance, AA&O x 4 Skin: warm, dry, intact, no rashes or lesions HEENT: NC/AT, PERRL, EOMI, anicteric sclera, conjunctiva without injection, external ear normal to inspection and nontender, nares patent, moist mucus membranes, dentition intact, no oropharyngeal lesions, neck supple, trachea midline, no LAD, no thyromegaly, no JVD Heart: +S1/S2, irregularly irregular, no m/r/g Lungs: equal air entry bilaterally, no rales/rhonchi/wheezes Abd: +BS, soft, NT/ND, no masses/organomegaly/ascites Ext: warm, 2+ pulses in UE/LE bilaterally, no clubbing/cyanosis or edema Neuro: nonfocal, patient AA&O x 4, speech intact, no facial droop, moving all extremities on command with equal strength 5/5 Results & Data Results & Data Vital Signs (Past 12 Hours) Vital Signs Temp Pulse Pulse Resp BP BP Pulse Ox 04/19/24 21:28 135 H 143/76 H 04/19/24 20:47 115 H 16 116/80 95 04/19/24 19:00 121 H 16 118/80 95 04/19/24 18:00 160 H 24 139/108 H 96 04/19/24 17:54 129 H 04/19/24 17:25 36.9 C 114 H 18 117/94 98 O2 Del Method 04/19/24 21:28 04/19/24 20:47 Room Air 04/19/24 19:00 Room Air 04/19/24 18:00 04/19/24 17:54 04/19/24 17:25 Room Air Laboratory Results Laboratory Results WBC 9.53 K/ul (4.8-10.8) 04/19/24 17:40 RBC 5.50 M/uL (4.70-6.10) 04/19/24 17:40 Hgb 17.4 g/dl (14.0-18.0) 04/19/24 17:40 Hct 51.7 % (42.0-52.0) 04/19/24 17:40 MCV 94.0 fL (80.0-100.0) 04/19/24 17:40 MCH 31.6 pg (25.0-34.0) 04/19/24 17:40 MCHC 33.7 g/dL (32.0-36.0) 04/19/24 17:40 RDW Std Deviation 43.7 fL (36.4-46.3) 04/19/24 17:40 RDW Coeff of Emily 12.6 % (11.5-14.5) 04/19/24 17:40 Plt Count 264 K/uL (130-400) 04/19/24 17:40 MPV 9.7 fL (9.4-12.4) 04/19/24 17:40 Immature Gran % (Auto) 0.5 % 04/19/24 17:40 Neut % (Auto) 65.3 % 04/19/24 17:40 Lymph % (Auto) 24.9 % 04/19/24 17:40 Quay % (Auto) 6.9 % 04/19/24 17:40 Eos % (Auto) 1.4 % 04/19/24 17:40 Baso % (Auto) 1.0 % 04/19/24 17:40 Neut # (Auto) 6.22 K/uL (1.40-6.50) 04/19/24 17:40 Lymph # (Auto) 2.37 K/uL (1.20-3.40) 04/19/24 17:40 Quay # (Auto) 0.66 K/uL (0.11-0.59) H 04/19/24 17:40 Eos # (Auto) 0.13 K/uL (0.00-0.50) 04/19/24 17:40 Baso # (Auto) 0.10 K/uL (0.00-0.20) 04/19/24 17:40 Immature Gran # (Auto) 0.05 K/uL (0.01-0.20) 04/19/24 17:40 D-Dimer 1270 ug/L FEU (0-500) H* 04/19/24 17:40 Sodium 139 mmol/L (136-145) 04/19/24 17:40 Potassium 3.9 mmol/L (3.5-5.1) 04/19/24 17:40 Chloride 105 mmol/L (98-107) 04/19/24 17:40 Carbon Dioxide 24 mmol/L (21-32) 04/19/24 17:40 Anion Gap 10 (3-11) 04/19/24 17:40 BUN 14 mg/dl (6-23) 04/19/24 17:40 Creatinine 0.88 mg/dl (0.6-1.4) 04/19/24 17:40 Est Cr Clr Drug Dosing 67.2 ml/min 04/19/24 17:40 Est GFR ( Amer) 99.5 ml/min 04/19/24 17:40 Est GFR (Non-Af Amer) 85.8 ml/min 04/19/24 17:40 BUN/Creatinine Ratio 15.9 (10-20) 04/19/24 17:40 Glucose 158 mg/dl (70-99(Fasting)) H 04/19/24 17:40 Calcium 9.7 mg/dl (8.6-10.3) 04/19/24 17:40 Magnesium 2.2 mg/dl (1.7-2.4) 04/19/24 17:40 Total Bilirubin 1.0 mg/dl (0.2-1.0) 04/19/24 17:40 AST 25 U/L (13-39) 04/19/24 17:40 ALT 22 U/L (7-52) 04/19/24 17:40 Alkaline Phosphatase 94 U/L (34-104) 04/19/24 17:40 Troponin I High Sens 5.5 pg/ml (0-20) 04/19/24 17:40 Total Protein 8.4 gm/dl (6.0-8.3) H 04/19/24 17:40 Albumin 4.7 gm/dl (3.4-5.0) 04/19/24 17:40 Globulin 3.7 gm/dl (2.5-4.0) 04/19/24 17:40 Albumin/Globulin Ratio 1.3 (0.9-2) 04/19/24 17:40 Lipase 83 U/L (11-82) H 04/19/24 17:40 TSH 1.545 uIu/ml (0.300-4.500) 04/19/24 17:40 TSH Cancelled 04/19/24 17:40 Impressions Chest X-Ray 04/19/24 17:31 SINGLE VIEW CHEST CLINICAL HISTORY: Atypical chest pain FINDINGS: An AP, portable, upright chest radiograph is compared to study dated 01/16/2023. The heart is mildly enlarged noting atherosclerotic calcification of the thoracic aorta. The pulmonary vasculature is noncongested. There is mild chronic elevation of the right hemidiaphragm and bibasilar atelectasis. The lungs and pleural spaces are otherwise clear. No pneumothorax is seen. The skeletal structures are osteopenic. The bony thorax is grossly intact. IMPRESSION: Cardiomegaly with no active disease in the chest. ACT 112: Negative or not required by law. Electronically signed by: Jeevan Santos M.D. 04/19/2024 7:08 PM Chest CTA 04/19/24 19:07 Exam(s): CTA CHEST EXAM: CT Angiography Chest With Intravenous Contrast CLINICAL HISTORY: Reason for exam: PE. TECHNIQUE: Axial computed tomographic angiography images of the chest with intravenous contrast. CTDI is 29.3 mGy and DLP is 645.66 mGy-cm. Automated exposure control was utilized for the study. A dose lowering technique was utilized adhering to the principles of ALARA. MIP reconstructed images were created and reviewed. COMPARISON: No relevant prior studies available. FINDINGS: Pulmonary arteries: Good pulmonary artery opacification. Mildly enlarged main pulmonary artery suggests pulmonary arterial hypertension. No evidence of pulmonary embolism. Aorta: No acute findings. No aortic aneurysm. Lungs: Subsegmental atelectasis at the lung bases. Mild emphysema. No consolidation. No mass. Right upper lobe pulmonary micronodule measuring 3 mm (series 4, image 147). Pleural space: Unremarkable. No significant effusion. No pneumothorax. Heart: Coronary artery atherosclerosis. No cardiomegaly or pericardial effusion. Bones/joints: No acute fracture. No dislocation. Soft tissues: Unremarkable. Lymph nodes: Unremarkable. No enlarged lymph nodes. IMPRESSION: 1. No evidence of pulmonary embolism. 2. Right upper lobe pulmonary micronodule measuring 3 mm (series 4, image 147). Fleischner Society Guidelines for low-risk or high-risk patients recommend that one should consider chest CT at 12 months due to the location of this nodule. Electronically signed by: Rubén Garcia M.D. 04/19/24 20:47 PM ECG Additional Comments: EKG with atrial fibrillation at 152bpm, normal axis, QRS=80, WFF=645, some rate related changes in inferior leads PG Care Time/CCT Total # of Minutes Spent Total Time Spent with Patient: Total time spent is greater than 50% in coordination of care (as documented) at patient's floor/unit and/or counseling patient: Coding Level of Care Code 04511 INT INP/OBS CARE 3/75MIN Diagnoses Dysrhythmia I49.9 Elevated d-dimer R79.89 Lung nodule R91.1
--- OUTSIDE RECORDS SUMMARY | 2024-04-19 22:29 | External Medical Summary | Continuity of Care Document ---
Author Name Unknown Organization [facility] [address] [facility] Address [address] [facility] [address] [phone] Care Team Providers Care Congressional Assistant Name Role Phone Reyes Poe Primary Care Physician [phone] Encounter [facility] [id number] Date(s): 03/20/24 - 03/20/24 [facility] [address] [facility] [address] [phone] Encounter Diagnosis Hx of skin malignancy(Discharge Diagnosis) - 03/20/24 History of eczema(Discharge Diagnosis) - 03/20/24 Actinic keratoses(Discharge Diagnosis) - 03/20/24 Seborrheic keratoses(Discharge Diagnosis) - 03/20/24 Onychomycosis(Discharge Diagnosis) - 03/20/24 Encounter for follow-up examination after completed treatment for cancer (Discharge Diagnosis) - 03/20/24 Discharge Disposition: Home or Self Care Attending Physician: MD Todd Sara B Allergies, Adverse Reactions, Alerts No Known Allergies Assessment and Plan Extracted from: Title:Dermatology Office Visit Note Author:Gordon brown MD, Sara B Date:03/20/24 1.Hx of skin malignancy Warning signs of skin cancer were reviewed. Sun protection reviewed. Follow-up in 12months, sooner for any changing or growing lesions or acute concerns. I also recommended monthly self skin exams 2.History of eczema Has been quiescent 3.Actinic keratoses x1. Lesion treated with liquid nitrogen. Patient aware of possibility of infection, hypo or hyperpigmentation or scarring and did elect to proceed. They should inform me of any problems or recurrences post treatment. Care sheet given. 3.Encounter for follow-up examination after completed treatment for cancer 4.Seborrheic keratoses Chronic, within normal limits today 5.Onychomycosis Chronic, worsening, not at goal, he tried years of Penlac. Also tried some tea tree oil. Jublia now looks like it is covered under his formulary so we will prescribe that. Risks and benefits including irritation discussed. Prescription sent. Medications Claritin 10 mg oral tablet Start: 12/29/17 11:06:00 AM EDT, 1 tab, PO, Daily, PRN: as needed for allergy symptoms Start Date: 12/29/17 Status: Ordered Co Q-10 100 mg oral capsule Start: 12/31/19 10:27:00 AM EDT, 1 cap, PO, Daily Start Date: 12/31/19 Status: Ordered econazole 1% topical cream Start: 03/16/23 2:50:00 PM EDT, 1 appl, topical, bid, Disp# 30 g, Refills: 0, apply to affected areason the face and thigh, Pharmacy: [facility]/pharmacy #[id number] Start Date: 03/16/23 Status: Ordered Flonase 50 mcg/inh nasal spray Start: 12/29/17 11:06:00 AM EDT, 1 spray, each nostril, Daily Start Date: 12/29/17 Status: Ordered Jublia 10% topical solution Start: 03/20/24 1:42:00 PM EDT, 1 appl, topical, Daily, Disp# 8 mL, Refills: 1, To all toenails nightly, Pharmacy: [facility]/pharmacy #[id number] Start Date: 03/20/24 Status: Ordered Metoprolol Succinate ER 25 mg oral tablet, extended release Start: 03/16/23 2:27:00 PM EDT, 30 each, TAKE 1 TABLET BY MOUTH DAILY Start Date: 03/16/23 Status: Ordered pravastatin 20 mg oral tablet Start: 12/30/15 9:53:00 AM EDT, 1 tab, PO, Daily Start Date: 12/30/15 Status: Ordered PreserVision oral tablet Start: 12/31/19 10:27:00 AM EDT, 1 tab, PO, Daily Start Date: 12/31/19 Status: Ordered triamcinolone 0.1% topical cream Start: 01/13/22 10:47:00 AM EDT, 1 appl, topical, bid, Disp# 30 g, prn Start Date: 01/13/22 Status: Ordered venlafaxine 50 mg oral tablet Start: 12/19/12 11:29:00 AM EDT, 1 tab, PO, Daily Start Date: 12/19/12 Status: Ordered Vitamin C 500 mg oral capsule Start: 12/31/20 11:37:00 AM EDT, 1 cap, PO, bid Start Date: 12/31/20 Status: Ordered Mental Status 03/20/24 Barriers to Learning one year None evide nt Mandatory Health Literacy Documentation Yes Health Literacy Communication Barriers N ever Primary Language Maldivian Problem List Condition Confirmation Course Effective Dates Status H ealth Status Informant Anxiety Confirmed Active BCC (basal cell carcinoma) Confirmed Active History of eczema 1, 2 Confirmed Active Encounter for follow-up examination after completed treatment for cancer Confirmed Active History of malignant neoplasm of skin Confirmed Active Actinic keratoses Confirmed Active Onychomycosis Confirmed Active Seborrheic keratoses Confirmed Active 1x1 in the past 2dermatitis Diagnosis Diagnosis Type Effective Dates Health Status Clinical Service Informant Actinic keratoses Discharge Diagnosis 03/20/24 Hx of skin malignancy Discharge Diagnosis 03/20/24 Onychomycosis Discharge Diagnosis 03/20/24 History of eczema Discharge Diagnosis 03/20/24 Seborrheic keratoses Discharge Diagnosis 03/20/24 Encounter for follow-up examination after completed treatment for cancer Discharge Diagnosis 03/20/24 Procedures Procedure Date Related Diagnosis Body Site Status Resection of colon for interposition 2009 Completed Tonsillectomy 1958 Completed Cataract Completed Surgery 1 Completed 1knee repair Social History Social History Type Response Smoking Status Former Smoker, quit > 1 yr Sex Male Sex Representation Male (finding) Dermatology Outpatient Note * MD Perez, Laura Powers: PERFORM Event Display: Dermatology Outpt Note Authored Date: [id number] Chief Complaint skin check- no concerns History of Present Illness The patient is a pleasant 73-year-old male new to me today but not new to the office. Usually sees Dr. Mcgowan. Has a history of basal cell carcinoma on the chest. Here today for skin check. Physical Exam Gen: Well appearing patient, no acute distress. Alert and oriented x3. Good mood. Skin examination completed of face, eyelids, scalp, hair, lips, ears, neck, chest, back, abdomen,upper and lower extremities bilaterally including hands, feet, fingers and toes, fingernails and toenails, pt declined buttocks and groin. Patient has 1 actinic keratoses on his right central posterior scalp. He has numerous seborrheic keratoses. No evidence of recurrent skin cancer. Onychomycosis in toenails throughout. No active eczema. Assessment/Plan 1.Hx of skin malignancy Warning signs of skin cancer were reviewed. Sun protection reviewed. Follow-up in 12months, sooner for any changing or growing lesions or acute concerns. I also recommended monthly self skinexams 2.History of eczema Has been quiescent 3.Actinic keratoses x1. Lesion treated with liquid nitrogen. Patient aware of possibility of infection, hypo or hyperpigmentation or scarring and did elect to proceed. They should inform me of any problems or recurrences post treatment. Care sheet given. 3.Encounter for follow-up examination after completed treatment for cancer 4.Seborrheic keratoses Chronic, within normal limits today 5.Onychomycosis Chronic, worsening, not at goal, he tried years of Penlac. Also tried some tea tree oil. Jublia now looks like it is covered under his formulary so we will prescribe that. Risks and benefits including irritation discussed. Prescription sent. Problem List/Past Medical History Ongoing Actinic keratoses Anxiety BCC (basal cell carcinoma) Encounter for follow-up examination after completed treatment for cancer History of eczema History of malignant neoplasm of skin Onychomycosis Seborrheic keratoses Procedure/Surgical History Resection of colon for interposition| Service Date: 2009Tonsillectomy| Service Date: 1958SurgeryCataract Medications ascorbic acid(Vitamin C 500 mg oral capsule), 500 mg= 1 cap, PO, bid econazole topical(econazole 1% topical cream), 1 appl, topical, bid efinaconazole topical(Jublia 10% topical solution), 1 appl, topical, Daily, 1 refills fluticasone nasal(Flonase 50 mcg/inh nasal spray), 1 spray, each nostril, Daily loratadine(Claritin 10 mg oral tablet), 10 mg= 1 tab, PO, Daily, PRN metoprolol(Metoprolol Succinate ER 25 mg oral tablet, extended release) multivitamin with minerals(PreserVision oral tablet), 1 tab, PO, Daily pravastatin(pravastatin 20 mg oral tablet), 20 mg= 1 tab, PO, Daily triamcinolone topical(triamcinolone 0.1% topical cream), 1 appl, topical, bid ubiquinone(Co Q-10 100 mg oral capsule), 100 mg= 1 cap, PO, Daily venlafaxine(venlafaxine 50 mg oral tablet), 50 mg= 1 tab, PO, Daily Allergies NKA Social History Smoking Status Former Smoker, quit > 1 yr Electronic Signature on File Electronically Reviewed/Signed by: Laura Todd MD Author Signature Dt/Tm:03/20/2024 01:48 PM Department of Dermatology [facility] Patient Care team information Care Team Personnel Name: MD Poe Jeffrey W Position: Referring DIRECT Member Role: Primary Care Provider Address: [facility] [address] [place] [address] Care Team Related Persons Name: ABRAN MORGAN Name: CHIDI MORGAN"
[2024-04-19] MEDS: METOPROLOL SUCC 50MG EXT REL TAB PO STA (23:01)
[2024-04-19] MEDS ORDERED: ACETAMINOPHEN 325 MG TAB PO PRN (23:16)
[2024-04-20] MEDS: LACTATED RINGER'S 1,000 ML IV SCH (00:14)
[2024-04-20 00:16] LABS: Magnesium 2.2 mg/dl (1.7-2.4)
[2024-04-20] MEDS: APIXABAN 5 MG TABLET PO ONE (00:16)
[2024-04-20 07:23] VITALS: RESP 18; TEMP 97.7
[2024-04-20] MEDS: dilTIAZem HCl 5 MG/ML 5 ML VIAL IV STA (07:47)
[2024-04-20 07:52] LABS: BUN Creatinine Ratio 14.1 (10-20); Creatinine Clr Calc Pharmacy 69.6 ml/min; Est GFR (African American) 100.9 ml/min; Est GFR (Non-African American) 87.1 ml/min; Potassium 4.4 mmol/L (3.5-5.1)
[2024-04-20] MEDS: APIXABAN 5 MG TABLET PO SCH (08:05)
[2024-04-20] MEDS: METOPROLOL SUCC 50MG EXT REL TAB PO SCH (08:05)
[2024-04-20] MEDS: VENLAFAXINE HCL 50 MG TAB PO SCH (08:06)
[2024-04-20] MEDS: METOPROLOL TARTRATE 1 MG/ML VIAL IV STA (09:31)
[2024-04-20 11:01] VITALS: O2SAT 98
--- NOTE | 2024-04-20 11:25 | Cardiology Consultation ---
Date of Consultation April 20, 2024 Assessment & Plan (1) Paroxysmal atrial fibrillation: (2) Supraventricular tachycardia: (3) Near syncope: Plan ASSESSMENT/PLAN: 1. Paroxysmal atrial fibrillation: Intermittently symptomatic with near syncope. Significantly elevated heart rate despite metoprolol succinate 100 mg chronically. Spontaneously converted. Has been occurring frequently over the past 2 months but intermittently throughout 2023 based on [facility] findi ngs. Recommend rhythm control. Discussed the diagnosis in detail and treatment strategies. Discussed antiarrhythmic therapy versus evaluation for ablation. Given that ablation will likely take some time to arrange, if he agrees to do such, recommend antiarrhythmic therapy now. Given age and the fact that he has not had ischemic evaluation, avoiding 1C agents for now. Start Trinate around 400 mg twice daily. Reduce metoprolol succinate to 50 mg daily to avoid significant bradycardia. Continue to monitor at home with [facility]. Follow-up closely with his primary certified driver examiner/escapement maker. Continue anticoagulation for stroke risk reduction. 2. History of SVT: A-fib with RVR during this hospital stay. Follows with EP. 3. Near syncope: Has correlated with A-fib with RVR. 4. Disposition: Can be discharged home from a cardiology perspective. Close follow-up with his escapement maker. Considered and discussed potential atrial fibrillation ablation as reasonable option. Antiarrhythmic therapy for now. Patient care communicated with Dr. Singer of the primary hospitalist service. Thank you for allowing me to participate in the care of your patient. Please call for any other questions or concerns. Sincerely, Nael Paige M.D. History of Present Illness Reason for Consultation: atrial fibrillation Requesting Physician: Clayton Singer Attending Physician: Clayton Singer History of Present Illness Mr. Mendez is a very pleasant 74-year-old gentleman with a history significant for SVT who presented with atrial fibrillation and rapid ventricular response. He also has a history of dyslipidemia. His primary certified driver examiner is Dr. Waters. He felt "faint" while sitting and checked his [employer] mobile which suggested atrial fibrillation with rapid ventricular response. He brought with him tracings from his [facility] and he has been having atrial fibrillation with rapid ventricular response going all the way back to October 06, 2023. He does not check it daily. He sometimes checks his telemetry just because another times due to near syncope. He has had several examples of A-fib with RVR and also sinus rhythm. It appears as though the frequency of A-fib with RVR has increased more recently. On 04/19/2024, he was noted to be in sinus rhythm at 1401 and then in A-fib at 1536. While here, he has received beta-kendell both intravenous and also additional dose of metoprolol succinate. His heart rate has remained elevated. He was asymptomatic while here however with no further near syncope. He denies p alpitations at any time. He denies chest pain, shortness of breath, syncope, edema, melena, hematochezia, or hematuria. He has been compliant with home beta-kendell. He denies any recent nausea, vo miting, diarrhea, fevers or chills. 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 During our conversation, he converted to sinus rhythm on 04/20/2024 at 10:22 AM. He did not notice any difference in how he felt but we were notified by nursing staff and a documented telemetry strip. Review of systems: As above. Review of systems otherwise negative/unremarkable. Family history: Brother with A-fib. Brother with MO. Mother received pacemaker in her 80s. Social history: Quit smoking in 1978. Rare alcohol. No drugs. Never . No children. Lives alone. 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 Unaccompanied. Allergies Allergy/AdvReac Type Severity Reaction Status Date / Time No Known Allergies Allergy Verified 01/25/24 14:18 Home Medications Medication Instructions Recorded Confirmed Type ascorbic acid (vitamin C) 500 mg 500 mg PO BID 07/18/19 04/19/24 History tablet loratadine 10 mg capsule 10 mg PO DAILY PRN Allergy Symptoms 07/18/19 04/19/24 History coenzyme Q10 100 mg capsule 100 mg PO QAM 09/17/19 04/19/24 History fluticasone propionate 50 1 sprays intranasal DAILY PRN 09/17/19 04/19/24 History mcg/actuation nasal Allergy Symptoms spray,suspension glucosamine sulfate 500 mg tablet 500 mg PO BID 09/17/19 04/19/24 History (Glucosamine) vitamins A,C,Q-xiou-igmegr 4,296 1 cap PO BID 09/17/19 04/19/24 History mcg-226 mg-90 mg capsule (PreserVision AREDS) cholecalciferol (vitamin D3) 50 50 mcg PO DAILY 01/16/23 04/19/24 History mcg (2,000 unit) capsule (Vitamin D3) diclofenac sodium 1 % topical gel 4 g topical QID PRN Pain 01/27/23 04/19/24 History (Voltaren Arthritis Pain) pravastatin 20 mg tablet 20 mg PO HS #90 tabs 07/20/23 04/19/24 Rx venlafaxine 50 mg tablet 50 mg PO QAM #90 tabs 07/20/23 04/19/24 Rx metoprolol succinate 100 mg 100 mg PO DAILY #90 tabs 09/01/23 04/19/24 Rx tablet,extended release 24 hr Problem List (Updated 04/20/24 @ 11:30 by Gab Paige MD) Paroxysmal atrial fibrillation Lung nodule Elevated d-dimer Tachycardia (Acute) Dysrhythmia (Acute) Supraventricular tachycardia Hyperlipidemia Vascular calcification Degenerative arthritis of knee, bilateral History of colon polyps Adjustment disorder with anxiety (Acute) Eczema (Acute) Osteoarthritis of cervical and lumbar spine (Acute) Patient History Medical History Hypercholesterolemia Osteoarthritis Anxiety History of diverticular abscess of colon PT REPORTS HX ABCESS OF COLON/SURGERY FOR History of basal cell carcinoma & REMOVED Diverticulitis, colon BPH w urinary obs/LUTS DENIES Adenomatous colon polyp HX COLON POLYP Surgical History History of cataract surgery LEFT/ RIGHT History of colonoscopy History of arthroscopy of left knee History of tonsillectomy S/P colectomy HX Partial, Sigmoid S/P lymph node biopsy Family History Father Dementia Mother Macular degeneration Sister Breast cancer Brother Myocardial infarction Atrial fibrillation Denies family history of Ovarian cancer Prostate cancer Lung cancer Colorectal cancer Cancer Social History Smoking Status: Former smoker Tobacco Type: Cigarettes Second Hand Exposure: No; Do You Dip or Chew Tobacco: No; Tobacco Cessation Education Requested by Patient: No Hx Alcohol Use: Yes Alcohol type: hard liquor Hx Substance Use: No Preferred Language: Czech Communication Ability: Effective Visual Impairment: No Limitations Hearing Ability: Normal Community Life Director Required: No Beliefs That Will Affect Care: None marital status: Single Current Living Situation: Alone current occupational status: retired How many Children do You have: 0 Other Information That Helps Us Care for You: No Feels Safe at Home: Yes Safety Concerns: Feels Safe At This Time Childhood Exposure to Second-Hand Smoke: Yes caffeine: Yes Dental Care, Regularly: Yes Physical Activity Frequency: 3-4 Times per Week Seatbelt Use: always Sunscreen Use: No Assistive Devices: Glasses Physical Exam Physical Exam: Gen.: No acute distress. Alert and oriented. HEENT: Anicteric sclera. Neck: No JVD. No bruits. Normal carotid upstrokes bilaterally. Cardiac: Regular. Normal rate. Normal S1-S2. No murmurs, rubs, or gallops. Pulmonary: Clear to auscultation bilaterally without wheezes, rales, or rhonchi. Abdomen: Soft, nontender, nondistended, with normoactive bowel sounds. No bruits noted. Extremities: 2+ radial pulses bilaterally. 2+ posterior tibialis pulses bilaterally. No edema or cyanosis. Psychiatric: Affect appears appropriate. Results & Data Vital Signs (Past 12 Hours) Vital Signs Temp Pulse Pulse Resp BP BP Pulse Ox 04/20/24 09:31 168 H 130/66 04/20/24 07:22 36.5 C 90 18 113/75 96 04/20/24 05:02 36.6 C 137 H 17 110/66 93 04/20/24 00:36 36.7 C 114 H 16 94/65 L 97 04/19/24 22:56 106 H 16 123/87 93 O2 Del Method 04/20/24 09:31 04/20/24 07:22 Room Air 04/20/24 05:02 Room Air 04/20/24 00:36 Room Air 04/19/24 22:56 Room Air Laboratory Results Laboratory Results - last 24 hr 04/19/24 04/19/24 04/20/24 17:40 17:40 06:41 WBC 9.53 RBC 5.50 Hgb 17.4 Hct 51.7 MCV 94.0 MCH 31.6 MCHC 33.7 RDW Std Deviation 43.7 RDW Coeff of Emily 12.6 Plt Count 264 MPV 9.7 Immature Gran % (Auto) 0.5 Neut % (Auto) 65.3 Lymph % (Auto) 24.9 [place] % (Auto) 6.9 Eos % (Auto) 1.4 Baso % (Auto) 1.0 Neut # (Auto) 6.22 Lymph # (Auto) 2.37 [place] # (Auto) 0.66 H Eos # (Auto) 0.13 Baso # (Auto) 0.10 Immature Gran # (Auto) 0.05 D-Dimer 1270 H* Sodium 139 141 Potassium 3.9 4.4 Chloride 105 106 Carbon Dioxide 24 29 Anion Gap 10 6 BUN 14 12 Creatinine 0.88 0.85 Est Cr Clr Drug Dosing 67.2 69.6 Est GFR ( Amer) 99.5 100.9 Est GFR (Non-Af Amer) 85.8 87.1 BUN/Creatinine Ratio 15.9 14.1 Glucose 158 H 92 Calcium 9.7 9.0 Magnesium 2.2 Total Bilirubin 1.0 AST 25 ALT 22 Alkaline Phosphatase 94 Troponin I High Sens 5.5 Total Protein 8.4 H Albumin 4.7 Globulin 3.7 Albumin/Globulin Ratio 1.3 Lipase 83 H TSH Cancelled 1.545 Diagnostic Findings Telemetry personally reviewed: A-fib with RVR and then spontaneously converted to sinus rhythm on 04/20/2024 at 10:22 AM. ECG personally reviewed: ECG 04/19/2024 1729: A-fib RVR [address] abnormality. Possible inferior infarct. Possible septal infarct. ECG 04/20/2024 at 10:56 AM: NSR 60 bpm. Septal infarct. Preliminary echo review from 04/20/2024: Normal LV systolic function. No regional wall motion abnormalities. No severe valvular stenosis/regurgitation. Formal review to follow. History and physical report reviewed. CTA chest 04/19/2024: No PE per radiology. Labs reviewed and notable for normal high-sensitivity troponin, normal potassium, normal renal function, normal magnesium, normal TSH, normal blood counts. Medications Administered Current Inpatient Medications Acetaminophen (Acetaminophen 325 Mg Tab) 650 mg PO Q4H PRN PRN Reason: Pain or Fever Stop: 05/19/24 23:15 Apixaban (Apixaban 5 Mg Tablet) 5 mg PO BID MELISSA Stop: 05/20/24 08:59 Last Admin: 04/20/24 08:05 Dose: 5 mg Dronedarone (Dronedarone Hcl 400 Mg Tab) 400 mg PO BID MELISSA Stop: 05/20/24 11:29 Metoprolol Succinate (Metoprolol Succ 50mg Ext Rel Tab) 50 mg PO DAILY MELISSA Stop: 05/21/24 08:59 Pravastatin Sodium (Pravastatin Sod 20 Mg Tab) 20 mg PO HS MELISSA Stop: 05/20/24 20:59 Venlafaxine HCl (Venlafaxine Hcl 50 Mg Tab) 50 mg PO QAM MELISSA Stop: 05/20/24 08:59 Last Admin: 04/20/24 08:06 Dose: 50 mg PG Care Time/CCT Total # of Minutes Spent Total Time Spent with Patient: Total time spent is greater than 50% in coordination of care (as documented) at patient's floor/unit and/or counseling patient: Coding Level of Care Code 84563 INT INP/OBS CARE 3/75MIN Diagnoses Paroxysmal atrial fibrillation I48.0 Supraventricular tachycardia I47.1 Near syncope R55
[2024-04-20] MEDS: DRONEDARONE HCL 400 MG TAB PO SCH (12:55)
[2024-04-20 13:18] VITALS: BP 111/75; PULSE 61
--- NOTE | 2024-04-20 16:21 | XCELERA ---
[id number]
[2024-04-20] MEDS ORDERED: PRAVASTATIN SOD 20 MG TAB PO SCH (21:00)
[2024-04-21] MEDS ORDERED: METOPROLOL SUCC 50MG EXT REL TAB PO SCH (09:00)
--- NOTE | 2024-04-21 21:01 | Electrocardiogram Report ---
Test Reason : Blood Pressure : */* mmHG Vent. Rate : 152 BPM Atrial Rate : * BPM P-R Int : * ms QRS Dur : 80 ms QT Int : 284 ms P-R-T Axes : * -9 3 degrees QTcB Int : 451 ms Atrial fibrillation with rapid ventricular response Inferior infarct , age undetermined Anteroseptal infarct (cited on or before 17-Sep-2019) Nonspecific ST abnormality When compared with ECG of 13-Aug-2023 16:55, Atrial fibrillation has replaced Sinus rhythm Vent. rate has increased by 75 bpm Inferior infarct is now Present Questionable change in initial forces of Septal leads ST now depressed in Lateral leads Nonspecific T wave abnormality now evident in Inferior leads Confirmed by Gab Paige ([id number]) on 04/21/2024 9:01:11 PM Referred By: REFERRED SELF Confirmed By: Gab Paige
--- NOTE | 2024-04-21 21:02 | Electrocardiogram Report ---
Test Reason : Blood Pressure : */* mmHG Vent. Rate : 60 BPM Atrial Rate : 60 BPM P-R Int : 158 ms QRS Dur : 92 ms QT Int : 392 ms P-R-T Axes : 59 -21 48 degrees QTcB Int : 392 ms Normal sinus rhythm Possible Left atrial enlargement Septal infarct (cited on or before 17-Sep-2019) When compared with ECG of 19-Apr-2024 17:29, Sinus rhythm has replaced Atrial fibrillation Vent. rate has decreased by 92 bpm Criteria for Inferior infarct are no longer Present Questionable change in initial forces of Anterior leads ST no longer depressed in Lateral leads Nonspecific T wave abnormality no longer evident in Inferior leads Confirmed by Gab Paige ([id number]) on 04/21/2024 9:02:03 PM Referred By: REFERRED SELF Confirmed By: Gab Paige
== END 2024-04-20 13:23 | disposition home or self-care (01) | DRG 310 ==
LOC: ED 17:20 → SUATTDRO 22:11 → INTOOBSV 22:11 → 2S 22:11

== ENCOUNTER 2024-05-28 11:46 | Inpatient (IN) ==
[2024-05-28] MEDS: SODIUM CHLORIDE 0.9% 500 ML IV ONE (12:13)
--- NOTE | 2024-05-28 12:30 | XRay Report ---
SINGLE VIEW CHEST CLINICAL HISTORY: Atypical chest pain FINDINGS: An AP, portable, upright chest radiograph is compared to chest x-ray and chest CT dated 04/19. The heart is enlarged and noting atherosclerotic calcification of the thoracic aorta. The pulm onary vasculature is noncongested. Chronic interstitial thickening is similar to previous. There is m ild elevation right hemidiaphragm and bibasilar atelectasis. No airspace consolidation or large pleur al effusion is seen. No pneumothorax is seen. The skeletal structures are osteopenic. The bony thorax is grossly intact. IMPRESSION: Cardiomegaly with no active disease in the chest. ACT 112: Negative or not required by law. Electronically signed by: Jeevan Santos M.D. 05/28/2024 12:28 PM
[2024-05-28 12:53] LABS: Basophils # (auto) 0.08 K/uL (0.00-0.20); Basophils % (auto) 0.9 %; Eosinophils # (auto) 0.33 K/uL (0.00-0.50); Eosinophils % (auto) 3.8 %; Hematocrit (blood only) 43.7 % (42.0-52.0); Hemoglobin 14.6 g/dl (14.0-18.0); Immature Granulocytes # (auto) 0.03 K/uL (0.01-0.20); Immature Granulocytes % (auto) 0.3 %; Lymphocytes # (auto) 1.96 K/uL (1.20-3.40); Lymphocytes % (auto) 22.8 %; Mean Corpuscular Hemoglobin 31.4 pg (25.0-34.0); Mean Corpuscular Hgb Conc 33.4 g/dL (32.0-36.0); Mean Platelet Volume 10.5 fL (9.4-12.4); Monocytes # (auto) 0.74 K/uL (0.11-0.59); Monocytes % (auto) 8.6 %; Neutrophils # (auto) 5.47 K/uL (1.40-6.50); Neutrophils % (auto) 63.6 %; Platelet Count 264 K/uL (130-400); RDW Coefficient of Variation 12.9 % (11.5-14.5); RDW Standard Deviation 44.4 fL (36.4-46.3); Red Blood Count 4.65 M/uL (4.70-6.10); White Blood Count 8.61 K/ul (4.8-10.8)
[2024-05-28 13:00] LABS: Prothrombin Time 10.7 Seconds (9.0-12.0)
[2024-05-28 13:13] LABS: Albumin Globulin Ratio 1.3 (0.9-2); Albumin Level 4.3 gm/dl (3.4-5.0); BUN Creatinine Ratio 20.8 (10-20); Bilirubin,Total 0.9 mg/dl (0.2-1.0); Calcium 9.6 mg/dl (8.6-10.3); Creatinine Clr Calc Pharmacy 75.4 ml/min; Globulin 3.4 gm/dl (2.5-4.0); Magnesium 2.1 mg/dl (1.7-2.4); Phosphorus 3.2 mg/dl (2.5-4.9); Potassium 4.4 mmol/L (3.5-5.1); Total Protein 7.7 gm/dl (6.0-8.3)
[2024-05-28 13:18] LABS: Troponin I High Sensitivity 4.6 pg/ml (0-20)
--- NOTE | 2024-05-28 14:03 | Emergency Department Note ---
Impression & Plan Atrial flutter with rapid ventricular response, On apixaban therapy, Hypertension ED Provider Note NAME: CHIDI MORGAN AGE: 74 SEX: M : 1950 ARRIVES VIA: Ambulance INFORMANT: Patient ED PROVIDER(S): Adryan Montero MD CHIEF COMPLAINT: Dizziness, nausea, diaphoresis PLAN: Disposition: Admit MEDICAL DECISION MAKING: The patient is a pleasant 74-year-old gentleman with a past medical history of atrial fibrillation/atrial flutter on Eliquis and 150 mg daily of metoprolol succinate who presents to the emergency department via EMS for evaluation of acute onset of diaphoresis and lightheadedness that occurred at 11 AM today when he was sitting and reading. He reports he googled his symptoms and worried that he could be "having a heart attack". He reports that he is not aware when his heart rate is fast such as when he was admitted to this facility in April and diagnosed with atrial fibrillation/flutter. He denies chest pain or pressure. He denies any recent illness including cough, congestion, symptoms. He did have some nausea with these episodes but denies vomiting or diarrhea. He reports he has been taking his medications as prescribed and has not missed any doses. On arrival to the emergency department the patient is in atrial flutter with RVR in the 120s-140s with blood pressure 160s/130s and vital signs otherwise stable. He appears clinically dry. EKG demonstrates atrial flutter with RVR without overt acute ischemia. Chest x- ray was negative for acute cardiopulmonary process per my preliminary independent interpretation. WBC, H/H and platelets within limits. Chemistry without metabolic acidosis. Electrolytes and LFTs unremarkable. High-sensitivity troponin 4.6, within normal limits with delta 2-hour HS troponin 4.6, again within normal limits. Lipase is normal. Patient was treated with IV fluid hydration with 500 cc of normal saline and 5 mg IV Lopressor with some initial improvement in rate to the 100s-110s but was noted to have return of RVR ranging from the 110s-140s and so was given second dose of 5 mg of IV Lopressor with some initial additional improvement to the 90s-110s but again with labile rates at times rising again to the 120s-140s. He was ordered for a third dose of 5 mg of IV Lopressor given RVR. Thus, patient does agree with plan for admission for further management. Of note, the patient does have cardia mobile device which he uses to monitor his heart rate and it appears he has had episodes frequently in the 120s and up to 160s over the past month. Case was discussed [place] Nails, [facility] [place], who will evaluate the patient for admission. Further management per admitting team. Triage Nursing notes reviewed and agree them. Prior/external medical records reviewed Vital Signs: reviewed Differential diagnosis: Premature contractions, electrolyte abnormality, cardiac dysrhythmia, thyroid dysfunction, pulmonary embolism, infection, gastrointestinal, as well as other pathologies. ER treatment provided: See below. Diagnostics interpreted by me: ECG: Atrial flutter with RVR, 133 bpm, no overt ST elevation or depression, QTc 422, QRS 80. Cardiac Monitoring: An order for continuous cardiac monitoring was placed and demonstrated Atrial flutter with RVR, 133 bpm Laboratory studies: See below Imaging studies: See below Consultation(s): Case was discussed with Dr. Nails, [facility] [place], who will evaluate the patient for admission. HPI: The patient is a pleasant 74-year-old gentleman with a past medical history of atrial fibrillation/atrial flutter on Eliquis and 150 mg daily of metoprolol succinate who presents to the emergency department via EMS for evaluation of acute onset of diaphoresis and lightheadedness that occurred at 11 AM today when he was sitting and reading. He reports he googled his symptoms and worried that he could be "having a heart attack". He reports that he is not aware when his heart rate is fast such as when he was admitted to this facility in April and diagnosed with atrial fibrillation/flutter. He denies chest pain or pressure. He denies any recent illness including cough, congestion, symptoms. He did have some nausea with these episodes but denies vomiting or diarrhea. He reports he has been taking his medications as prescribed and has not missed any doses. ROS: See above HPI for pertinent positives & negatives. A total of 10 systems reviewed and were otherwise negative. VITALS:See Below PHYSICAL EXAMINATION: GENERAL: Awake, alert, in no distress HENT: Normocephalic, atraumatic. Oropharynx with dry mucous membranes and otherwise unremarkable. EYES: Normal conjunctiva. Sclera non-icteric. NECK: Supple. No nuchal rigidity. FROM. No JVD. RESPIRATORY: Clear to auscultation. CARDIAC: Tachycardic rate, irregular rhythm. Extremities warm and well perfused. Pulses equal. ABDOMEN: Soft, non-distended. No tenderness to palpation. No rebound or guarding. No masses. MUSCULOSKELETAL: Chest examination reveals no tenderness. The back is symmetrical on inspection without obvious abnormality. There is no CVA tenderness to palpation. No joint edema. LOWER EXTREMITIES: Calves are equal size bilaterally and non-tender. No edema. No discoloration. NEURO: Normal sensorium. No sensory or motor deficits noted. SKIN: No rash or jaundice noted. ED COURSE: Critical Care: I have personally spent greater than 45 minutes of critical care time in the direct management of this patient. This includes bedside care, interpretation of diagnostic studies, and testing, discussion with consultants, patient, and family members, and other required patient management activities. This 45 minutes is in excess of all separately billable procedures. Adryan Montero MD Past Med/Surg History Problem List (Updated 05/29/24 @ 01:04 by Adryan Montero MD) Hypertension (Acute) On apixaban therapy (Acute) Atrial flutter with rapid ventricular response (Acute) Paroxysmal atrial fibrillation Lung nodule Elevated d-dimer Tachycardia (Acute) Dysrhythmia (Acute) Supraventricular tachycardia Hyperlipidemia Vascular calcification Degenerative arthritis of knee, bilateral History of colon polyps Adjustment disorder with anxiety (Acute) Eczema (Acute) Osteoarthritis of cervical and lumbar spine (Acute) Medical History Hypercholesterolemia Osteoarthritis Anxiety History of diverticular abscess of colon PT REPORTS HX ABCESS OF COLON/SURGERY FOR History of basal cell carcinoma & REMOVED Diverticulitis, colon BPH w urinary obs/LUTS DENIES Adenomatous colon polyp HX COLON POLYP Surgical History History of cataract surgery LEFT/ RIGHT History of colonoscopy History of arthroscopy of left knee History of tonsillectomy S/P colectomy HX Partial, Sigmoid S/P lymph node biopsy Family History Father Dementia Mother Macular degeneration Sister Breast cancer Brother Myocardial infarction Atrial fibrillation Denies family history of Ovarian cancer Prostate cancer Lung cancer Colorectal cancer Cancer Social History Smoking Status: Former smoker Tobacco Type: Cigarettes Second Hand Exposure: No; Do You Dip or Chew Tobacco: No; Hx Alcohol Use: Yes Alcohol type: hard liquor Hx Substance Use: Yes (few months ago, not regularly) Substance Use Type Other:: MARIJUANA> JUST AVERAGE FEW TIMES PER WEEK Preferred Language: Icelandic Communication Ability: Effective Visual Impairment: No Limitations Hearing Ability: Normal Apprentice/Lineman Required: No Beliefs That Will Affect Care: None marital status: Single Current Living Situation: Alone current occupational status: retired How many Children do You have: 0 Other Information That Helps Us Care for You: No Feels Safe at Home: Yes Safety Concerns: Feels Safe At This Time Childhood Exposure to Second-Hand Smoke: Yes caffeine: Yes Dental Care, Regularly: Yes Physical Activity Frequency: 3-4 Times per Week Seatbelt Use: always Sunscreen Use: No Assistive Devices: Glasses Allergies Allergies Allergy/AdvReac Type Severity Reaction Status Date / Time No Known Allergies Allergy Verified 05/06/24 11:15 Home Meds Home Medications Medication Instructions Recorded Confirmed ascorbic acid (vitamin C) 500 mg 500 mg PO BID 07/18/19 05/28/24 tablet loratadine 10 mg capsule 10 mg PO DAILY PRN Allergy Symptoms 07/18/19 05/28/24 coenzyme Q10 100 mg capsule 100 mg PO QAM 09/17/19 05/28/24 fluticasone propionate 50 1 sprays intranasal DAILY PRN 09/17/19 05/28/24 mcg/actuation nasal Allergy Symptoms spray,suspension glucosamine sulfate 500 mg tablet 500 mg PO BID 09/17/19 05/28/24 (Glucosamine) vitamins A,C,[id number] 4,296 1 cap PO BID 09/17/19 05/28/24 mcg-226 mg-90 mg capsule (PreserVision AREDS) cholecalciferol (vitamin D3) 50 50 mcg PO DAILY 01/16/23 05/28/24 mcg (2,000 unit) capsule (Vitamin D3) diclofenac sodium 1 % topical gel 4 g topical QID PRN Pain 01/27/23 05/28/24 (Voltaren Arthritis Pain) Previous Rx's Medication Instructions Recorded pravastatin 20 mg tablet 20 mg PO HS #90 tabs 07/20/23 venlafaxine 50 mg tablet 50 mg PO QAM #90 tabs 04/22/24 metoprolol succinate 100 mg 150 mg (1.5 x 100 mg) PO DAILY 05/06/24 tablet,extended release 24 hr #135 tabs apixaban 5 mg tablet (Eliquis) 5 mg PO BID #180 tabs 05/15/24 Results & Data (ED) Vital Signs Vital Signs - 24 hr 05/28/24 11:47 05/28/24 12:02 05/28/24 12:09 Temperature 36.5 C Temperature Source Temporal Artery Scan Pulse Rate 120 H 142 H 114 H Pulse Rate [Apical] Pulse Rate from SpO2 Sensor 94 H Pulse Rhythm Regular Pulse Rhythm [Apical] Respiratory Rate 20 16 Respiratory Effort / Characteristics Non-Labored Spontaneous Respiratory Depth Normal Respiratory Pattern Blood Pressure 165/133 H 165/133 H Blood Pressure [Right Arm] Blood Pressure Mean 143 143 Blood Pressure Mean [Right Arm] Pulse Oximetry 95 95 Oxygen Delivery Method Room Air Sepsis Recent Fever Within 48 Hours No Sepsis New/Unexplained Change in Mental Status No Sepsis Action Taken by Nursing No Action Required 05/28/24 12:15 05/28/24 12:30 05/28/24 12:30 Temperature Temperature Source Pulse Rate 122 H Pulse Rate [Apical] Pulse Rate from SpO2 Sensor 71 Pulse Rhythm Pulse Rhythm [Apical] Respiratory Rate 17 Respiratory Effort / Characteristics Respiratory Depth Respiratory Pattern Blood Pressure 157/94 H 156/101 H 156/101 H Blood Pressure [Right Arm] Blood Pressure Mean 115 107 107 Blood Pressure Mean [Right Arm] Pulse Oximetry 95 Oxygen Delivery Method Sepsis Recent Fever Within 48 Hours Sepsis New/Unexplained Change in Mental Status Sepsis Action Taken by Nursing 05/28/24 12:34 05/28/24 12:36 05/28/24 12:36 Temperature Temperature Source Pulse Rate 91 H Pulse Rate [Apical] 111 H Pulse Rate from SpO2 Sensor Pulse Rhythm Pulse Rhythm [Apical] Respiratory Rate 16 17 Respiratory Effort / Characteristics Non-Labored Spontaneous Respiratory Depth Normal Respiratory Pattern Regular Blood Pressure Blood Pressure [Right Arm] 156/101 H Blood Pressure Mean Blood Pressure Mean [Right Arm] 119 Pulse Oximetry 96 97 97 Oxygen Delivery Method Room Air Room Air Room Air Sepsis Recent Fever Within 48 Hours Sepsis New/Unexplained Change in Mental Status Sepsis Action Taken by Nursing 05/28/24 12:45 05/28/24 12:45 05/28/24 12:54 Temperature Temperature Source Pulse Rate 100 H 89 Pulse Rate [Apical] Pulse Rate from SpO2 Sensor 91 H 87 Pulse Rhythm Pulse Rhythm [Apical] Respiratory Rate 14 19 Respiratory Effort / Characteristics Respiratory Depth Respiratory Pattern Blood Pressure 155/111 H Blood Pressure [Right Arm] Blood Pressure Mean 118 Blood Pressure Mean [Right Arm] Pulse Oximetry 96 95 Oxygen Delivery Method Sepsis Recent Fever Within 48 Hours Sepsis New/Unexplained Change in Mental Status Sepsis Action Taken by Nursing 05/28/24 13:01 05/28/24 13:01 05/28/24 13:03 Temperature Temperature Source Pulse Rate 119 H Pulse Rate [Apical] Pulse Rate from SpO2 Sensor 82 Pulse Rhythm Pulse Rhythm [Apical] Respiratory Rate 19 Respiratory Effort / Characteristics Respiratory Depth Respiratory Pattern Blood Pressure 124/93 124/93 Blood Pressure [Right Arm] Blood Pressure Mean 107 107 Blood Pressure Mean [Right Arm] Pulse Oximetry 95 Oxygen Delivery Method Sepsis Recent Fever Within 48 Hours Sepsis New/Unexplained Change in Mental Status Sepsis Action Taken by Nursing 05/28/24 13:18 05/28/24 13:24 05/28/24 13:30 Temperature Temperature Source Pulse Rate 95 H 111 H Pulse Rate [Apical] Pulse Rate from SpO2 Sensor 96 H 99 H Pulse Rhythm Pulse Rhythm [Apical] Respiratory Rate 16 22 Respiratory Effort / Characteristics Respiratory Depth Respiratory Pattern Blood Pressure 140/112 H Blood Pressure [Right Arm] Blood Pressure Mean 131 Blood Pressure Mean [Right Arm] Pulse Oximetry 95 93 Oxygen Delivery Method Sepsis Recent Fever Within 48 Hours Sepsis New/Unexplained Change in Mental Status Sepsis Action Taken by Nursing 05/28/24 13:36 05/28/24 13:45 05/28/24 13:46 Temperature Temperature Source Pulse Rate 98 H 91 H Pulse Rate [Apical] Pulse Rate from SpO2 Sensor 75 90 Pulse Rhythm Pulse Rhythm [Apical] Respiratory Rate 20 18 Respiratory Effort / Characteristics Respiratory Depth Respiratory Pattern Blood Pressure 151/106 H Blood Pressure [Right Arm] Blood Pressure Mean 123 Blood Pressure Mean [Right Arm] Pulse Oximetry 96 94 Oxygen Delivery Method Sepsis Recent Fever Within 48 Hours Sepsis New/Unexplained Change in Mental Status Sepsis Action Taken by Nursing 05/28/24 13:48 05/28/24 13:54 05/28/24 13:55 Temperature Temperature Source Pulse Rate 100 H Pulse Rate [Apical] 109 H Pulse Rate from SpO2 Sensor 82 Pulse Rhythm Pulse Rhythm [Apical] Irregular Respiratory Rate 17 16 Respiratory Effort / Characteristics Non-Labored Spontaneous Respiratory Depth Normal Respiratory Pattern Regular Blood Pressure 137/94 Blood Pressure [Right Arm] 151/106 H Blood Pressure Mean 108 Blood Pressure Mean [Right Arm] 121 Pulse Oximetry 96 97 Oxygen Delivery Method Room Air Sepsis Recent Fever Within 48 Hours Sepsis New/Unexplained Change in Mental Status Sepsis Action Taken by Nursing 05/28/24 13:57 05/28/24 14:00 05/28/24 14:15 Temperature Temperature Source Pulse Rate 116 H Pulse Rate [Apical] 132 H Pulse Rate from SpO2 Sensor 83 Pulse Rhythm Pulse Rhythm [Apical] Respiratory Rate 18 15 Respiratory Effort / Characteristics Non-Labored Spontaneous Respiratory Depth Normal Respiratory Pattern Regular Blood Pressure 144/108 H Blood Pressure [Right Arm] 142/91 H Blood Pressure Mean 111 Blood Pressure Mean [Right Arm] 108 Pulse Oximetry 97 97 Oxygen Delivery Method Sepsis Recent Fever Within 48 Hours Sepsis New/Unexplained Change in Mental Status Sepsis Action Taken by Nursing 05/28/24 14:15 05/28/24 14:21 05/28/24 14:25 Temperature Temperature Source Pulse Rate 116 H 96 H Pulse Rate [Apical] Pulse Rate from SpO2 Sensor 90 Pulse Rhythm Pulse Rhythm [Apical] Respiratory Rate 20 Respiratory Effort / Characteristics Respiratory Depth Respiratory Pattern Blood Pressure 142/91 H 141/110 H Blood Pressure [Right Arm] Blood Pressure Mean 94 Blood Pressure Mean [Right Arm] Pulse Oximetry 97 Oxygen Delivery Method Sepsis Recent Fever Within 48 Hours Sepsis New/Unexplained Change in Mental Status Sepsis Action Taken by Nursing 05/28/24 14:26 05/28/24 14:30 05/28/24 14:45 Temperature Temperature Source Pulse Rate 92 H Pulse Rate [Apical] Pulse Rate from SpO2 Sensor 81 Pulse Rhythm Pulse Rhythm [Apical] Respiratory Rate 20 Respiratory Effort / Characteristics Respiratory Depth Respiratory Pattern Blood Pressure 141/110 H 107/86 Blood Pressure [Right Arm] Blood Pressure Mean 113 100 Blood Pressure Mean [Right Arm] Pulse Oximetry 96 Oxygen Delivery Method Sepsis Recent Fever Within 48 Hours Sepsis New/Unexplained Change in Mental Status Sepsis Action Taken by Nursing 05/28/24 14:45 05/28/24 14:51 05/28/24 14:57 Temperature Temperature Source Pulse Rate 135 H 87 Pulse Rate [Apical] Pulse Rate from SpO2 Sensor 82 82 Pulse Rhythm Pulse Rhythm [Apical] Respiratory Rate 20 20 Respiratory Effort / Characteristics Respiratory Depth Respiratory Pattern Blood Pressure 139/96 Blood Pressure [Right Arm] Blood Pressure Mean 121 Blood Pressure Mean [Right Arm] Pulse Oximetry 96 97 Oxygen Delivery Method Sepsis Recent Fever Within 48 Hours Sepsis New/Unexplained Change in Mental Status Sepsis Action Taken by Nursing 05/28/24 15:00 05/28/24 15:06 05/28/24 15:12 Temperature Temperature Source Pulse Rate 114 H 103 H Pulse Rate [Apical] Pulse Rate from SpO2 Sensor 86 85 Pulse Rhythm Pulse Rhythm [Apical] Respiratory Rate 17 20 Respiratory Effort / Characteristics Respiratory Depth Respiratory Pattern Blood Pressure 125/97 Blood Pressure [Right Arm] Blood Pressure Mean 102 Blood Pressure Mean [Right Arm] Pulse Oximetry 96 95 Oxygen Delivery Method Sepsis Recent Fever Within 48 Hours Sepsis New/Unexplained Change in Mental Status Sepsis Action Taken by Nursing 05/28/24 15:16 05/28/24 15:30 05/28/24 15:30 Temperature Temperature Source Pulse Rate 122 H Pulse Rate [Apical] Pulse Rate from SpO2 Sensor 83 Pulse Rhythm Pulse Rhythm [Apical] Respiratory Rate 21 Respiratory Effort / Characteristics Respiratory Depth Respiratory Pattern Blood Pressure 133/97 134/98 Blood Pressure [Right Arm] Blood Pressure Mean 101 102 Blood Pressure Mean [Right Arm] Pulse Oximetry 95 Oxygen Delivery Method Sepsis Recent Fever Within 48 Hours Sepsis New/Unexplained Change in Mental Status Sepsis Action Taken by Nursing 05/28/24 15:38 05/28/24 15:39 05/28/24 16:00 Temperature Temperature Source Pulse Rate 101 H 111 H Pulse Rate [Apical] Pulse Rate from SpO2 Sensor Pulse Rhythm Pulse Rhythm [Apical] Respiratory Rate 15 Respiratory Effort / Characteristics Respiratory Depth Normal Respiratory Pattern Blood Pressure 134/98 134/98 Blood Pressure [Right Arm] Blood Pressure Mean Blood Pressure Mean [Right Arm] Pulse Oximetry Oxygen Delivery Method Sepsis Recent Fever Within 48 Hours Sepsis New/Unexplained Change in Mental Status Sepsis Action Taken by Nursing 05/28/24 16:00 05/28/24 16:06 05/28/24 16:16 Temperature Temperature Source Pulse Rate 112 H 140 H Pulse Rate [Apical] Pulse Rate from SpO2 Sensor 87 98 H Pulse Rhythm Pulse Rhythm [Apical] Respiratory Rate 18 21 Respiratory Effort / Characteristics Respiratory Depth Respiratory Pattern Blood Pressure 135/86 123/102 H Blood Pressure [Right Arm] Blood Pressure Mean 95 108 Blood Pressure Mean [Right Arm] Pulse Oximetry 97 96 Oxygen Delivery Method Sepsis Recent Fever Within 48 Hours Sepsis New/Unexplained Change in Mental Status Sepsis Action Taken by Nursing 05/28/24 16:18 05/28/24 16:26 05/28/24 16:30 Temperature Temperature Source Pulse Rate 112 H 101 H 101 H Pulse Rate [Apical] Pulse Rate from SpO2 Sensor 82 Pulse Rhythm Pulse Rhythm [Apical] Respiratory Rate 12 Respiratory Effort / Characteristics Respiratory Depth Respiratory Pattern Blood Pressure 123/102 H 123/102 H 137/108 H Blood Pressure [Right Arm] Blood Pressure Mean 109 Blood Pressure Mean [Right Arm] Pulse Oximetry 96 Oxygen Delivery Method Sepsis Recent Fever Within 48 Hours Sepsis New/Unexplained Change in Mental Status Sepsis Action Taken by Nursing 05/28/24 16:30 05/28/24 16:42 05/28/24 16:45 Temperature Temperature Source Pulse Rate 106 H 96 H Pulse Rate [Apical] 112 H Pulse Rate from SpO2 Sensor 76 Pulse Rhythm Pulse Rhythm [Apical] Respiratory Rate 21 19 Respiratory Effort / Characteristics Respiratory Depth Respiratory Pattern Blood Pressure 146/110 H 146/110 H Blood Pressure [Right Arm] 137/108 H Blood Pressure Mean 122 Blood Pressure Mean [Right Arm] 117 Pulse Oximetry 96 96 Oxygen Delivery Method Sepsis Recent Fever Within 48 Hours Sepsis New/Unexplained Change in Mental Status Sepsis Action Taken by Nursing Laboratory Data Attestation: I reviewed the patient's lab results. 05/28/24 11:55 05/28/24 11:55 Lab Results 05/28/24 05/28/24 Range/Units 11:55 14:18 WBC 8.61 (4.8-10.8) K/ul RBC 4.65 L (4.70-6.10) M/uL Hgb 14.6 (14.0-18.0) g/dl Hct 43.7 (42.0-52.0) % MCV 94.0 (80.0-100.0) fL MCH 31.4 (25.0-34.0) pg MCHC 33.4 (32.0-36.0) g/dL RDW Std Deviation 44.4 (36.4-46.3) fL RDW Coeff of Emily 12.9 (11.5-14.5) % Plt Count 264 (130-400) K/uL MPV 10.5 (9.4-12.4) fL Immature Gran % (Auto) 0.3 % Neut % (Auto) 63.6 % Lymph % (Auto) 22.8 % [place] % (Auto) 8.6 % Eos % (Auto) 3.8 % Baso % (Auto) 0.9 % Neut # (Auto) 5.47 (1.40-6.50) K/uL Lymph # (Auto) 1.96 (1.20-3.40) K/uL [place] # (Auto) 0.74 H (0.11-0.59) K/uL Eos # (Auto) 0.33 (0.00-0.50) K/uL Baso # (Auto) 0.08 (0.00-0.20) K/uL Immature Gran # (Auto) 0.03 (0.01-0.20) K/uL PT 10.7 (9.0-12.0) Seconds INR 1.0 (0.9-1.1) Sodium 139 (136-145) mmol/L Potassium 4.4 (3.5-5.1) mmol/L Chloride 104 (98-107) mmol/L Carbon Dioxide 28 (21-32) mmol/L Anion Gap 7 (3-11) BUN 16 (6-23) mg/dl Creatinine 0.77 (0.6-1.4) mg/dl Est Cr Clr Drug Dosing 75.4 ml/min eGFR 95.12 BUN/Creatinine Ratio 20.8 H (10-20) Glucose 105 H (70-99(Fasting)) mg/dl Calcium 9.6 (8.6-10.3) mg/dl Phosphorus 3.2 (2.5-4.9) mg/dl Magnesium 2.1 (1.7-2.4) mg/dl Total Bilirubin 0.9 (0.2-1.0) mg/dl AST 21 (13-39) U/L ALT 22 (7-52) U/L Alkaline Phosphatase 77 (34-104) U/L Troponin I High Sens 4.6 4.6 (0-20) pg/ml Total Protein 7.7 (6.0-8.3) gm/dl Albumin 4.3 (3.4-5.0) gm/dl Globulin 3.4 (2.5-4.0) gm/dl Albumin/Globulin Ratio 1.3 (0.9-2) Lipase 68 (11-82) U/L Administered Medications Apixaban (Apixaban 5 Mg Tablet) 5 mg PO BID MELISSA Stop: 06/27/24 20:59 Last Admin: 05/28/24 22:11 Dose: 5 mg Documented By: RENATO Ascorbic Acid (Ascorbic Acid 500 Mg Tab) 500 mg PO BIDM MELISSA Stop: 06/27/24 20:59 Last Admin: 05/28/24 22:11 Dose: 500 mg Documented By: RENATO Glucosamine Sulfate (Glucosamine Sulfate 500 Mg Cap) 500 mg PO BID MELISSA Stop: 06/27/24 20:59 Last Admin: 05/28/24 22:11 Dose: 500 mg Documented By: RENATO Pravastatin Sodium (Pravastatin Sod 20 Mg Tab) 20 mg PO HS MELISSA Stop: 06/27/24 20:59 Last Admin: 05/28/24 22:11 Dose: 20 mg Documented By: RENATO Discontinued Medications Sodium Chloride (Nss) 500 mls @ 999 mls/hr IV .Q31M ONE Stop: 05/28/24 12:35 Last Infusion: 05/28/24 12:47 Dose: Infused Documented By: Admin: 05/28/24 12:13 Dose: 999 mls/hr Documented By: ART Metoprolol Succinate (Metoprolol Succ 50mg Ext Rel Tab) 100 mg PO NOW STA Stop: 05/28/24 16:54 Last Admin: 05/28/24 17:20 Dose: 100 mg Documented By: ART Metoprolol Tartrate (Metoprolol Tartrate 1 Mg/Ml Vial) 5 mg IV NOW STA Stop: 05/28/24 14:13 Last Admin: 05/28/24 14:25 Dose: 5 mg Documented By: ART Metoprolol Tartrate (Metoprolol Tartrate 1 Mg/Ml Vial) 5 mg IV NOW STA Stop: 05/28/24 15:01 Last Admin: 05/28/24 15:39 Dose: 5 mg Documented By: ART Metoprolol Tartrate (Metoprolol Tartrate 1 Mg/Ml Vial) 5 mg IV NOW STA Stop: 05/28/24 16:06 Last Admin: 05/28/24 16:30 Dose: 5 mg Documented By: ART Imaging Data Radiologist's Impression: Chest X-Ray 05/28/24 12:03 SINGLE VIEW CHEST CLINICAL HISTORY: Atypical chest pain FINDINGS: An AP, portable, upright chest radiograph is compared to chest x-ray and chest CT dated 04/19/2024. The heart is enlarged and noting atherosclerotic calcification of the thoracic aorta. The pulmonary vasculature is noncongested. Chronic interstitial thickening is similar to previous. There is mild elevation right hemidiaphragm and bibasilar atelectasis. No airspace consolidation or large pleural effusion is seen. No pneumothorax is seen. The skeletal structures are osteopenic. The bony thorax is grossly intact. IMPRESSION: Cardiomegaly with no active disease in the chest. ACT 112: Negative or not required by law. Electronically signed by: Jeevan Santos M.D. 05/28/2024 12:28 PM Discharge Plan Visit Data Chief Complaint: Cardiac Assessment Stated Complaint: Dizziness/Nausea/Afib ED Provider: Adryan Montero Discharge Problem: Atrial flutter with rapid ventricular response, On apixaban therapy, Hypertension Patient Disposition: Admitted As Inpatient Discharge Instructions Interventions: ED Discharge Assessment Last Done: 05/28/24 20:30 Discharge Problem: Hypertension Qualifiers: Hypertension type: unspecified Qualified Code(s): I10 - Essential (primary) hypertension
[2024-05-28] MEDS: METOPROLOL TARTRATE 1 MG/ML VIAL IV STA ×3 (14:25→16:30)
--- NOTE | 2024-05-28 16:23 | Electrocardiogram Report ---
Test Reason : Blood Pressure : */* mmHG Vent. Rate : 133 BPM Atrial Rate : * BPM P-R Int : * ms QRS Dur : 80 ms QT Int : 284 ms P-R-T Axes : * 9 28 degrees QTcB Int : 422 ms Atrial fibrillation with rapid ventricular response Abnormal ECG When compared with ECG of 20-Apr-2024 10:56, Atrial fibrillation has replaced Sinus rhythm Vent. rate has increased by 73 bpm Confirmed by Jackson Bourgeois ([id number]) on 05/28/2024 4:23:23 PM Referred By: Confirmed By: Jackson Bourgeois
--- NOTE | 2024-05-28 16:39 | History & Physical Report ---
Date of Service May 28, 2024 Assessment & Plan (1) Paroxysmal atrial fibrillation: Plan: A-fib with RVR Last echo 04/20/2024: EF 60 to 65%, no regional wall motion abnormalities. Moderate concentric LVH. A-fib RVR at that time Has been on metoprolol 150 mg succinate daily since 05/06. Some response with metoprolol 5 mg x 3 in the ER Patient has paroxysmal A-fib and has been in and out several times over the last month per his home cardiac monitoring device has been on continuous anticoagulation since the beginning of April, apixaban continued Cardiology consulted. Will add an additional 100 mg metoprolol succinate p.o. now and continue 5 mg every 4 hours overnight as needed for HR greater than 120s. Keep n.p.o. at midnight if needed for cardioversion tomorrow. Appreciate recommendations. Patient has not been hypotensive at the bedside Magnesium 2.1, potassium 4.4 on admission (2) Hyperlipidemia: Plan: Hyperlipidemia: Pravastatin continued Plan Anxiety/depression: Venlafaxine continued DVT PPx: Anticoagulated Disposition: PCU CODE STATUS: Full code Diet: Heart healthy, n.p.o. midnight History of Present Illness Primary Care Provider: Reyes Poe MD Bharat is a 74-year-old male with a past medical history of paroxysmal A-fib, SVT, hyperlipidemia recently discharged 05/02/2024 after an admission for near syncope with suspected A-fib versus a flutter with improvement and subsequent conversion after IV metoprolol at that time who presents to the ER for cardiac evaluation and is found to be in A-fib with RVR rates in 130s. Patient was seen for follow-up by outpatient cardiology 05/06/2024. Tradjenta round was discontinued as it was not felt to be working and beta-kendell was uptitrated to 100 mg and then 150 mg succinate daily. He was referred to [facility] for ablation consideration. Was noted to have 1 documented episode of SVT in the past Sent to the ER today with dizziness nausea and sweating which started about 11 AM. EKG A-fib with RVR rates 130s. Per patient: Bharat is seen at the bedside. He reports that he is in the hospital last month for A-fib with a rapid rate, which he generally did not feel Was seen 04/20/2024. A-fib RVR at that time. Multiple episodes of A-fib by his home Kardiamobile. He presents to the hospital at that time after he notices heart rate was elevated on a home cardiac monitoring device and then when his heart was fast had a feeling of presyncope. He reports during his last hospitalization he was given metoprolol, and converted to sinus rhythm. After this he was started on Multaq for attempted maintenance of sinus and started on anticoagulation. He has been on continuous anticoagulation since the beginning of April. He reports he has not missed any doses. Unfortunately his cardiology follow-up he had had intermittent return to A-fib with RVR and as the Multaq was not effective for maintaining sinus this was discontinued, and his metoprolol was gradually upgraded to 150 mg succinate daily which she has been taking for the last several weeks and has not missed any doses. Despite this he has had multiple recurrences of A-fib RVR with rates ranging from 100s to the 150s despite being on metoprolol 150s and May 06. Uses a home Kardiomobile device and on this has been in the 140s on 05/19 Reports he has had no chest pain or chest pressure at any time. Does tend get sweaty when walking dogs for center cutting paws but has no limiting dyspnea or chest pain with this. His episode of lightheadedness today was accompanied by pouring sweat/diaphoresis. He denies a history of sleep apnea. Does not use alcohol regularly. No recent illnesses or diarrhea No tobacco use Medical History: Reviewed Medications: Reviewed Surgical History: Reviewed Family history: Reviewed Allergies: Reviewed Social History: No tobacco use. Rare social etoh Code Status: Full Allergies Allergy/AdvReac Type Severity Reaction Status Date / Time No Known Allergies Allergy Verified 05/06/24 11:15 Home Medications Medication Instructions Recorded Confirmed Type ascorbic acid (vitamin C) 500 mg 500 mg PO BID 07/18/19 05/28/24 History tablet loratadine 10 mg capsule 10 mg PO DAILY PRN Allergy Symptoms 07/18/19 05/28/24 History coenzyme Q10 100 mg capsule 100 mg PO QAM 09/17/19 05/28/24 History fluticasone propionate 50 1 sprays intranasal DAILY PRN 09/17/19 05/28/24 History mcg/actuation nasal Allergy Symptoms spray,suspension glucosamine sulfate 500 mg tablet 500 mg PO BID 09/17/19 05/28/24 History (Glucosamine) vitamins A,C,A-suya-ozukmt 4,296 1 cap PO BID 09/17/19 05/28/24 History mcg-226 mg-90 mg capsule (PreserVision AREDS) cholecalciferol (vitamin D3) 50 50 mcg PO DAILY 01/16/23 05/28/24 History mcg (2,000 unit) capsule (Vitamin D3) diclofenac sodium 1 % topical gel 4 g topical QID PRN Pain 01/27/23 05/28/24 History (Voltaren Arthritis Pain) pravastatin 20 mg tablet 20 mg PO HS #90 tabs 07/20/23 05/28/24 Rx venlafaxine 50 mg tablet 50 mg PO QAM #90 tabs 04/22/24 05/28/24 Rx metoprolol succinate 100 mg 150 mg (1.5 x 100 mg) PO DAILY 05/06/24 05/28/24 Rx tablet,extended release 24 hr #135 tabs apixaban 5 mg tablet (Eliquis) 5 mg PO BID #180 tabs 05/15/24 05/28/24 Rx Past Med/Surg History Problem List (Updated 05/28/24 @ 16:07 by Adryan Montero MD) Atrial flutter with rapid ventricular response (Acute) Paroxysmal atrial fibrillation Lung nodule Elevated d-dimer Tachycardia (Acute) Dysrhythmia (Acute) Supraventricular tachycardia Hyperlipidemia Vascular calcification Degenerative arthritis of knee, bilateral History of colon polyps Adjustment disorder with anxiety (Acute) Eczema (Acute) Osteoarthritis of cervical and lumbar spine (Acute) Medical History Hypercholesterolemia Osteoarthritis Anxiety History of diverticular abscess of colon PT REPORTS HX ABCESS OF COLON/SURGERY FOR History of basal cell carcinoma & REMOVED Diverticulitis, colon BPH w urinary obs/LUTS DENIES Adenomatous colon polyp HX COLON POLYP Surgical History History of cataract surgery History of colonoscopy History of arthroscopy of left knee History of tonsillectomy S/P colectomy S/P lymph node biopsy Family History Father Dementia Mother Macular degeneration Sister Breast cancer Brother Myocardial infarction Atrial fibrillation Denies family history of Ovarian cancer Prostate cancer Lung cancer Colorectal cancer Cancer Social History Smoking Status: Never smoker Tobacco Type: Cigarettes Second Hand Exposure: No; Do You Dip or Chew Tobacco: No; Hx Alcohol Use: Yes Alcohol type: hard liquor Hx Substance Use: No Preferred Language: Welsh Communication Ability: Effective Visual Impairment: No Limitations Hearing Ability: Normal Radio Frequency Design Engineer Required: No Beliefs That Will Affect Care: None marital status: Single Current Living Situation: Alone current occupational status: retired How many Children do You have: 0 Feels Safe at Home: Yes Childhood Exposure to Second-Hand Smoke: Yes caffeine: Yes Dental Care, Regularly: Yes Physical Activity Frequency: 3-4 Times per Week Seatbelt Use: always Sunscreen Use: No Assistive Devices: Glasses Physical Exam Physical Exam: General: A&Ox3. NAD. Cooperative. HEENT: Atraumatic, normocephalic. Vision/hearing intact Pulm: CTAB A&P. -wheezes, -rales, -rhonchi. Symmetrical chest rise. No increased work of breathing. No respiratory distress. Cardiac: irir, -mrg. Radial pulses intact and symmetrical. No JVD Abdominal: Nontender, nondistended, soft. BS present. Ext: warm, dry. Results & Data Results & Data Vital Signs (Past 12 Hours) Vital Signs Temp Pulse Pulse Resp BP BP Pulse Ox 05/28/24 16:30 101 H 137/108 H 05/28/24 16:26 101 H 123/102 H 05/28/24 16:18 112 H 12 123/102 H 96 05/28/24 16:16 123/102 H 05/28/24 16:06 140 H 21 96 05/28/24 16:00 112 H 18 135/86 97 05/28/24 16:00 15 05/28/24 15:39 111 H 134/98 05/28/24 15:38 101 H 134/98 05/28/24 15:30 134/98 05/28/24 15:30 122 H 21 95 05/28/24 15:16 133/97 05/28/24 15:12 103 H 20 95 05/28/24 15:06 114 H 17 96 05/28/24 15:00 125/97 05/28/24 14:57 87 20 97 05/28/24 14:51 135 H 20 96 05/28/24 14:45 139/96 05/28/24 14:45 92 H 20 96 05/28/24 14:30 107/86 05/28/24 14:26 141/110 H 05/28/24 14:25 96 H 141/110 H 05/28/24 14:21 116 H 20 97 05/28/24 14:15 142/91 H 05/28/24 14:15 132 H 15 142/91 H 97 05/28/24 14:00 144/108 H 05/28/24 13:57 116 H 18 97 05/28/24 13:55 137/94 05/28/24 13:54 109 H 16 151/106 H 97 05/28/24 13:48 100 H 17 96 05/28/24 13:46 151/106 H 05/28/24 13:45 91 H 18 94 05/28/24 13:36 98 H 20 96 05/28/24 13:30 140/112 H 05/28/24 13:24 111 H 22 93 05/28/24 13:18 95 H 16 95 05/28/24 13:03 119 H 19 95 05/28/24 13:01 124/93 05/28/24 13:01 124/93 05/28/24 12:54 89 19 95 05/28/24 12:45 155/111 H 05/28/24 12:45 100 H 14 96 05/28/24 12:36 111 H 17 156/101 H 97 05/28/24 12:36 97 05/28/24 12:34 91 H 16 96 05/28/24 12:30 156/101 H 05/28/24 12:30 156/101 H 05/28/24 12:15 122 H 17 157/94 H 95 05/28/24 12:09 114 H 16 165/133 H 95 05/28/24 12:02 142 H 05/28/24 11:47 36.5 C 120 H 20 165/133 H 95 O2 Del Method 05/28/24 16:30 05/28/24 16:26 05/28/24 16:18 05/28/24 16:16 05/28/24 16:06 05/28/24 16:00 05/28/24 16:00 05/28/24 15:39 05/28/24 15:38 05/28/24 15:30 05/28/24 15:30 05/28/24 15:16 05/28/24 15:12 05/28/24 15:06 05/28/24 15:00 05/28/24 14:57 05/28/24 14:51 05/28/24 14:45 05/28/24 14:45 05/28/24 14:30 05/28/24 14:26 05/28/24 14:25 05/28/24 14:21 05/28/24 14:15 05/28/24 14:15 05/28/24 14:00 05/28/24 13:57 05/28/24 13:55 05/28/24 13:54 Room Air 05/28/24 13:48 05/28/24 13:46 05/28/24 13:45 05/28/24 13:36 05/28/24 13:30 05/28/24 13:24 05/28/24 13:18 05/28/24 13:03 05/28/24 13:01 05/28/24 13:01 05/28/24 12:54 05/28/24 12:45 05/28/24 12:45 05/28/24 12:36 Room Air 05/28/24 12:36 Room Air 05/28/24 12:34 Room Air 05/28/24 12:30 05/28/24 12:30 05/28/24 12:15 05/28/24 12:09 05/28/24 12:02 05/28/24 11:47 Room Air PG Care Time/CCT Total # of Minutes Spent Total Time Spent with Patient: Total time spent is greater than 50% in coordination of care (as documented) at patient's floor/unit and/or counseling patient: Coding Level of Care Code 66748 INT INP/OBS CARE 3/75MIN Diagnoses Paroxysmal atrial fibrillation I48.0 Hyperlipidemia E78.5
[2024-05-28] MEDS: METOPROLOL SUCC 50MG EXT REL TAB PO STA (17:20)
[2024-05-28] MEDS ORDERED: ACETAMINOPHEN 325 MG TAB PO PRN (20:13)
[2024-05-28] MEDS ORDERED: LORATADINE 10 MG TAB PO PRN (20:29)
[2024-05-28] MEDS ORDERED: METOPROLOL TARTRATE 1 MG/ML VIAL IV PRN (22:00)
[2024-05-28] MEDS: PRAVASTATIN SOD 20 MG TAB PO SCH (22:11)
[2024-05-28] MEDS: ASCORBIC ACID 500 MG TAB PO SCH (22:11)
[2024-05-28] MEDS: APIXABAN 5 MG TABLET PO SCH (22:11)
[2024-05-28] MEDS: GLUCOSAMINE SULFATE 500 MG CAP PO SCH (22:11)
--- NOTE | 2024-05-29 06:41 | Hospitalist Progress Note ---
Date of Service May 29, 2024 Assessment & Plan (1) Paroxysmal atrial fibrillation: Plan: A-fib with RVR Last echo 04/20/2024: EF 60 to 65%, no regional wall motion abnormalities. Moderate concentric LVH. A-fib RVR at that time Failed Multag trial, has been on metoprolol 150 mg succinate daily since 05/06. Paroxysmal A-fib - in and out several times over the last month per his home cardiac monitoring device has been on continuous anticoagulation since the beginning of April, apixaban continued Cardiology consulted, appreciate recs: - Hold metoprolol, start Amiodarone 200mg PO TID - NPO at midnight, consider cardioversion if rates persistently elevated. Patient asymptomatic and hemodynamically stable AM labs (2) Hyperlipidemia: Plan: Hyperlipidemia: Pravastatin continued Plan Anxiety/depression: Venlafaxine continued DVT PPx: Eliquis Disposition: PCU CODE STATUS: Full code Diet: Heart healthy, n.p.o. midnight Admission and Anticipated Discharge Date Admission Date: May 28, 2024 Supervising Physician Co-Signing Physician Notes Attending Physician Supervision Note: I independently interviewed and examined the patient and verified the kramer hist ory and physical, reviewed labs and image studies and agree with findings and care plan noted above. Subjective Per telemetry, rates overnight generally in the 100-160 range, A-fib maintained. Denies CP/SOB/palpitations, denies recurrence of lightheadedness/diaphoresis. Reviewed Kardia mobile monitoring with patient, has been in A-fib for close to 2 weeks, rates up to 160s. Pt has appointment 06/12 at [facility] to discuss possible ablation. Review of Systems Review of Systems: as per HPI Physical Exam Physical Exam: General: Alert and oriented. No acute distress Cardiac: Irregularly irregular, +tachycardia, no murmurs appreciated Respiratory: Lungs clear to auscultation bilaterally, No increased work of breathing Extremities: No lower extremity edema, calves non-tender bilaterally Results & Data Results & Data Vital Signs (Past 12 Hours) Vital Signs Temp Pulse Pulse Resp BP Pulse Ox O2 Del Method 05/29/24 03:20 36.6 C 113 H 18 115/81 95 Room Air 05/28/24 23:40 89 05/28/24 23:08 36.9 C 91 H 18 114/89 99 Room Air 10/15/24 22:21 101 H 05/28/24 20:44 36.5 C 93 H 18 148/106 H 94 Room Air 05/28/24 19:25 113 H 18 146/98 H 96 Resident Activity Tracking Resident Involvement: Resident Care Provided Care Provided: Adult Hospital Medicine
[2024-05-29 06:42] LABS: Basophils # (auto) 0.09 K/uL (0.00-0.20); Basophils % (auto) 1.1 %; Eosinophils # (auto) 0.19 K/uL (0.00-0.50); Eosinophils % (auto) 2.4 %; Hematocrit (blood only) 40.6 % (42.0-52.0); Immature Granulocytes # (auto) 0.02 K/uL (0.01-0.20); Immature Granulocytes % (auto) 0.3 %; Lymphocytes # (auto) 1.83 K/uL (1.20-3.40); Lymphocytes % (auto) 23.3 %; Mean Corpuscular Hgb Conc 34.5 g/dL (32.0-36.0); Mean Corpuscular Volume 92.9 fL (80.0-100.0); Mean Platelet Volume 10.3 fL (9.4-12.4); Monocytes # (auto) 0.72 K/uL (0.11-0.59); Monocytes % (auto) 9.2 %; Neutrophils # (auto) 4.99 K/uL (1.40-6.50); Neutrophils % (auto) 63.7 %; Platelet Count 233 K/uL (130-400); RDW Coefficient of Variation 12.8 % (11.5-14.5); RDW Standard Deviation 43.8 fL (36.4-46.3); Red Blood Count 4.37 M/uL (4.70-6.10); White Blood Count 7.84 K/ul (4.8-10.8)
[2024-05-29 06:53] LABS: BUN Creatinine Ratio 20.3 (10-20); Calcium 9.1 mg/dl (8.6-10.3); Creatinine Clr Calc Pharmacy 78.5 ml/min; Potassium 4.4 mmol/L (3.5-5.1)
[2024-05-29] MEDS ORDERED: NON-FORMULARY MEDICATION (Coenzyme Q10 100 mg capsule) PO SCH (09:00)
--- NOTE | 2024-05-29 09:33 | Cardiology Consultation ---
Date of Consultation May 29, 2024 Assessment & Plan (1) Paroxysmal atrial fibrillation: (2) Supraventricular tachycardia: (3) On apixaban therapy: Plan 74-year-old man with PSVT diagnosed 2022 and paroxysmal atrial fibrillation diagnosed last month now admitted with recurrent atrial fibrillation with rapid ventricular response despite being on metoprolol succinate 150 mg daily. As noted, he failed Multaq therapy and is planned for possible ablation at [place], evaluation scheduled for later this month. In order to achieve adequate rate/rhythm control in the meantime, after discussion with Dr. Chowdhury (electrophysiology), feel that he should be initiated on amiodarone. Could start with amiodarone 200 mg p.o. 3 times daily, tapering to twice daily upon discharge, further taper as outpatient. Would hold metoprolol, possibly restarting if rate remains elevated tomorrow. Little utility to immediate electrical cardioversion, since he likely would relapse into atrial fibrillation (he has had multiple episodes over the past month). However, if his rate remains inadequately controlled as of tomorrow morning (after initiation of amiodarone loading) would be reasonable to cardiovert at that time. Continue apixaban for anticoagulation. Fortunately, he has normal systolic function, minimal symptoms, and no evidence of ongoing myocardial ischemia or congestive heart failure. Will continue to follow while he is hospitalized, outpatient follow-up with Dr. Cali. History of Present Illness Reason for Consultation: afib rvr Requesting Physician: Alpa Herzog MD Attending Physician: Alpa Herzog MD History of Present Illness 74-year-old man with history of paroxysmal supraventricular tachycardia (diagnosed January 2023) who subsequently developed paroxysmal atrial fibrillation (first noted April 2024) who was admitted yesterday with recurrent tachypalpitations and found to have atrial fibrillation with rapid ventricular response. He has a [employer] nico on his phone which shows he has likely been in atrial fibrillation intermittently since 05/15/2024, there is at least 1 tracing return to sinus rhythm on 05/19/2024. However, over the past week he has remained in atrial fibrillation with a rapid ventricular response. He generally tolerates this very well and has minimal symptoms until the day of admission when he developed lightheadedness with presyncope and diaphoresis. He denies chest pain at any time and does not note any unusual dyspnea, orthopnea, PND, or ankle edema. Echocardiogram April 2024 showed normal LV systolic function with moderate LVH and mild MR. ECG on admission showed atrial fibrillation with ventricular rate 133 bpm, no significant ST deviation. Troponin value 4.6 with repeat value also 4.6. Followed by Dr. Cali, see office note of 05/06/2024 for details of his SVT and atrial fibrillation. Basically, patient was on Multaq but it was ineffective and was discontinued and his beta-kendell dose increased at the time of that office visit. Patient has an appointment on 06/12/2024 at [facility] for evaluation as to whether ablation of his PSVT and/or atrial fibrillation would be warranted. He was given IV and additional oral beta-kendell with mild improvement in his rapid ventricular sponsor. However, telemetry shows his rate ranges from 100- 160 bpm with an average around 120 bpm overnight. He feels much better and denied any symptoms whatsoever at the time of my evaluation this morning. Allergies Allergy/AdvReac Type Severity Reaction Status Date / Time No Known Allergies Allergy Verified 05/06/24 11:15 Home Medications Medication Instructions Recorded Confirmed Type ascorbic acid (vitamin C) 500 mg 500 mg PO BID 07/18/19 05/28/24 History tablet loratadine 10 mg capsule 10 mg PO DAILY PRN Allergy Symptoms 07/18/19 05/28/24 History coenzyme Q10 100 mg capsule 100 mg PO QAM 09/17/19 05/28/24 History fluticasone propionate 50 1 sprays intranasal DAILY PRN 09/17/19 05/28/24 History mcg/actuation nasal Allergy Symptoms spray,suspension glucosamine sulfate 500 mg tablet 500 mg PO BID 09/17/19 05/28/24 History (Glucosamine) vitamins A,C,Q-pwkf-uerxip 4,296 1 cap PO BID 09/17/19 05/28/24 History mcg-226 mg-90 mg capsule (PreserVision AREDS) cholecalciferol (vitamin D3) 50 50 mcg PO DAILY 01/16/23 05/28/24 History mcg (2,000 unit) capsule (Vitamin D3) diclofenac sodium 1 % topical gel 4 g topical QID PRN Pain 01/27/23 05/28/24 History (Voltaren Arthritis Pain) pravastatin 20 mg tablet 20 mg PO HS #90 tabs 07/20/23 05/28/24 Rx venlafaxine 50 mg tablet 50 mg PO QAM #90 tabs 04/22/24 05/28/24 Rx metoprolol succinate 100 mg 150 mg (1.5 x 100 mg) PO DAILY 05/06/24 05/28/24 Rx tablet,extended release 24 hr #135 tabs apixaban 5 mg tablet (Eliquis) 5 mg PO BID #180 tabs 05/15/24 05/28/24 Rx Patient History Medical History Hypercholesterolemia Osteoarthritis Anxiety History of diverticular abscess of colon PT REPORTS HX ABCESS OF COLON/SURGERY FOR History of basal cell carcinoma & REMOVED Diverticulitis, colon BPH w urinary obs/LUTS DENIES Adenomatous colon polyp HX COLON POLYP Surgical History History of cataract surgery LEFT/ RIGHT History of colonoscopy History of arthroscopy of left knee History of tonsillectomy S/P colectomy HX Partial, Sigmoid S/P lymph node biopsy Family History Father Dementia Mother Macular degeneration Sister Breast cancer Brother Myocardial infarction Atrial fibrillation Denies family history of Ovarian cancer Prostate cancer Lung cancer Colorectal cancer Cancer Social History Smoking Status: Former smoker Tobacco Type: Cigarettes Second Hand Exposure: No; Do You Dip or Chew Tobacco: No; Hx Alcohol Use: Yes Alcohol type: hard liquor Hx Substance Use: Yes (few months ago, not regularly) Substance Use Type Other:: MARIJUANA> JUST AVERAGE FEW TIMES PER WEEK Preferred Language: Mongolian Communication Ability: Effective Visual Impairment: No Limitations Hearing Ability: Normal Director Of Strategy & Mobile Required: No Beliefs That Will Affect Care: None marital status: Single Current Living Situation: Alone current occupational status: retired How many Children do You have: 0 Other Information That Helps Us Care for You: No Feels Safe at Home: Yes Safety Concerns: Feels Safe At This Time Childhood Exposure to Second-Hand Smoke: Yes caffeine: Yes Dental Care, Regularly: Yes Physical Activity Frequency: 3-4 Times per Week Seatbelt Use: always Sunscreen Use: No Assistive Devices: Glasses Physical Exam Physical Exam: Elderly white male in no distress. Afebrile. BP normotensive. Pulse 120 bpm and irregular. Respirations 18 unlabored. Skin: no ecchymoses or generalized lesions. HEENT: unremarkable. Neck: JVP at the clavicle at 90 degrees, no carotid bruits. Lungs: clear. Cardiac: Irregular/tachycardic rhythm, normal S1-2, no obvious murmur. Abdomen: benign. Extremities: no edema, pulses intact. Neurologic: normal affect and conversation, nonfocal. Results & Data Vital Signs (Past 12 Hours) Vital Signs Temp Pulse Pulse Resp BP Pulse Ox O2 Del Method 05/29/24 07:45 97.5 F L 92 H 18 128/78 96 Room Air 05/29/24 03:20 97.9 F 113 H 18 115/81 95 Room Air 05/28/24 23:40 89 05/28/24 23:08 98.4 F 91 H 18 114/89 99 Room Air 05/28/24 22:21 101 H Laboratory Results Normal CBC, normal electrolytes including potassium of 4.4 and magnesium of 2.1, BUN 15, creatinine 0.74. Normal TSH last month. Diagnostic Findings Cardiomegaly, otherwise unremarkable chest x-ray. ECG as per HPI. PG Care Time/CCT Total # of Minutes Spent Total Time Spent with Patient: Total time spent is greater than 50% in coordination of care (as documented) at patient's floor/unit and/or counseling patient: Coding Level of Care Code 78130 ER DEPT VISIT HIGH LVL 5 Diagnoses Paroxysmal atrial fibrillation I48.0 Supraventricular tachycardia I47.1 On apixaban therapy Z79.01
[2024-05-29] MEDS: CHOLECALCIFEROL 25 MCG (1000 UNITS) TAB PO SCH (09:47)
[2024-05-29] MEDS: METOPROLOL SUCC 50MG EXT REL TAB PO SCH (09:48)
[2024-05-29] MEDS: VENLAFAXINE HCL 50 MG TAB PO SCH (09:48)
[2024-05-29] MEDS: AMIODARONE 200 MG TAB PO SCH (11:08)
--- NOTE | 2024-05-30 06:49 | Hospitalist Progress Note ---
Date of Service May 30, 2024 Assessment & Plan (1) Paroxysmal atrial fibrillation: Plan: A-fib with RVR Last echo 04/20/2024: EF 60 to 65%, no regional wall motion abnormalities. Moderate concentric LVH. A-fib RVR at that time Failed Multag trial, has been on metoprolol 150 mg succinate daily since 05/06. Paroxysmal A-fib - in and out several times over the last month per his home cardiac monitoring device has been on continuous anticoagulation since the beginning of April, apixaban continued Cardiology consulted, appreciate recs: - Hold metoprolol, start Amiodarone 200mg PO TID - NPO at midnight, consider cardioversion if rates persistently elevated. Patient asymptomatic and hemodynamically stable AM labs (2) Hyperlipidemia: Plan: Hyperlipidemia: Pravastatin continued Plan Anxiety/depression: Venlafaxine continued DVT PPx: Eliquis Disposition: PCU CODE STATUS: Full code Diet: Heart healthy, n.p.o. midnight Admission and Anticipated Discharge Date Admission Date: May 28, 2024 Subjective Per telemetry, still in A-fib, overnight rates improved with average in the 90s, higher this morning in the 130-140s range. Denies CP/SOB/palpitations, denies recurrence of lightheadedness/diaphoresis. Review of Systems Review of Systems: as per HPI Physical Exam Physical Exam: General: Alert and oriented. No acute distress Cardiac: Irregularly irregular, +tachycardia, no murmurs appreciated Respiratory: Lungs clear to auscultation bilaterally, No increased work of breathing Extremities: No lower extremity edema, calves non-tender bilaterally Results & Data Results & Data Vital Signs (Past 12 Hours) Vital Signs Temp Pulse Pulse Resp BP Pulse Ox Pulse Ox 05/30/24 03:08 36.6 C 105 H 18 121/82 94 05/30/24 00:09 91 H 05/29/24 23:09 36.7 C 81 16 123/79 96 05/29/24 20:13 94 O2 Del Method O2 Del Method 05/30/24 03:08 Room Air 05/30/24 00:09 05/29/24 23:09 Room Air 05/29/24 20:13 Room Air Resident Activity Tracking Resident Involvement: Resident Care Provided Care Provided: Adult Hospital Medicine
[2024-05-30 07:27] LABS: Basophils # (auto) 0.06 K/uL (0.00-0.20); Basophils % (auto) 0.8 %; Eosinophils # (auto) 0.23 K/uL (0.00-0.50); Eosinophils % (auto) 3.1 %; Hematocrit (blood only) 41.3 % (42.0-52.0); Hemoglobin 13.9 g/dl (14.0-18.0); Immature Granulocytes # (auto) 0.02 K/uL (0.01-0.20); Immature Granulocytes % (auto) 0.3 %; Lymphocytes # (auto) 1.84 K/uL (1.20-3.40); Lymphocytes % (auto) 24.7 %; Mean Corpuscular Hemoglobin 31.4 pg (25.0-34.0); Mean Corpuscular Hgb Conc 33.7 g/dL (32.0-36.0); Mean Corpuscular Volume 93.4 fL (80.0-100.0); Mean Platelet Volume 10.4 fL (9.4-12.4); Monocytes % (auto) 9.4 %; Neutrophils # (auto) 4.59 K/uL (1.40-6.50); Neutrophils % (auto) 61.7 %; Platelet Count 243 K/uL (130-400); RDW Standard Deviation 44.9 fL (36.4-46.3); Red Blood Count 4.42 M/uL (4.70-6.10); White Blood Count 7.44 K/ul (4.8-10.8)
[2024-05-30 07:55] LABS: BUN Creatinine Ratio 21.6 (10-20); Calcium 9.1 mg/dl (8.6-10.3); Creatinine Clr Calc Pharmacy 78.5 ml/min; Potassium 4.1 mmol/L (3.5-5.1)
--- NOTE | 2024-05-30 10:39 | Anesthesiology Consultation ---
Date of Service May 30, 2024 Assessment & Plan Chart Review Chart Review: Acceptable Risk for Surgery and Patient NOT seen in Pre Admission Testing Consults Requested none ASA ASA2 Proposed Anesthesia Anesthesia Type: MAC Risk / Benefits Reviewed With: PT / POA / Parent / Guardian, Accepts Plan and Informed Consent Obtained History Surgery Operation Date: 05/30/24 10:30 Proposed Procedures p Cardioversion w/Anesthesia Sedation - Jackson Bourgeois MD Height/Weight Height: 5 ft 5 in Weight: 64.5 kg Allergies Allergy/AdvReac Type Severity Reaction Status Date / Time No Known Allergies Allergy Verified 05/06/24 11:15 Medications Home Medications Medication Instructions Recorded Confirmed Last Taken ascorbic acid (vitamin C) 500 mg 500 mg PO BID 07/18/19 05/28/24 05/28/24 tablet loratadine 10 mg capsule 10 mg PO DAILY PRN Allergy Symptoms 07/18/19 05/28/24 01/16/23 coenzyme Q10 100 mg capsule 100 mg PO QAM 09/17/19 05/28/24 05/28/24 fluticasone propionate 50 1 sprays intranasal DAILY PRN 09/17/19 05/28/24 01/15/23 mcg/actuation nasal Allergy Symptoms spray,suspension glucosamine sulfate 500 mg tablet 500 mg PO BID 09/17/19 05/28/24 05/28/24 (Glucosamine) vitamins A,C,[id number] 4,296 1 cap PO BID 09/17/19 05/28/24 01/15/23 mcg-226 mg-90 mg capsule (PreserVision AREDS) cholecalciferol (vitamin D3) 50 50 mcg PO DAILY 01/16/23 05/28/24 05/28/24 mcg (2,000 unit) capsule (Vitamin D3) diclofenac sodium 1 % topical gel 4 g topical QID PRN Pain 01/27/23 05/28/24 Unknown (Voltaren Arthritis Pain) pravastatin 20 mg tablet 20 mg PO HS #90 tabs 07/20/23 05/28/24 Unknown venlafaxine 50 mg tablet 50 mg PO QAM #90 tabs 04/22/24 05/28/24 05/28/24 metoprolol succinate 100 mg 150 mg (1.5 x 100 mg) PO DAILY 05/06/24 05/28/24 05/28/24 tablet,extended release 24 hr #135 tabs apixaban 5 mg tablet (Eliquis) 5 mg PO BID #180 tabs 05/15/24 05/28/24 05/28/24 Active Medications Generic Name Dose Route Start Last Admin Trade Name Ilene PRN Reason Stop Dose Admin Amiodarone HCl 200 mg 05/29/24 10:09 05/30/24 08:24 Amiodarone 200 Mg Tab PO 06/28/24 10:08 200 mg TIDM MELISSA Administration Apixaban 5 mg 05/28/24 21:00 05/30/24 08:25 Apixaban 5 Mg Tablet PO 06/27/24 20:59 5 mg BID MELISSA Administration Ascorbic Acid 500 mg 05/28/24 21:00 05/30/24 08:24 Ascorbic Acid 500 Mg Tab PO 06/27/24 20:59 500 mg BIDM MELISSA Administration Glucosamine Sulfate 500 mg 05/28/24 21:00 05/30/24 08:25 Glucosamine Sulfate 500 Mg Cap PO 06/27/24 20:59 500 mg BID MELISSA Administration Metoprolol Succinate 150 mg 05/29/24 09:00 05/29/24 09:48 Metoprolol Succ 50mg Ext Rel Tab PO 06/28/24 08:59 150 mg DAILY MELISSA Administration Pravastatin Sodium 20 mg 05/28/24 21:00 05/29/24 21:23 Pravastatin Sod 20 Mg Tab PO 06/27/24 20:59 20 mg HS MELISSA Administration Venlafaxine HCl 50 mg 05/29/24 09:00 05/30/24 08:25 Venlafaxine Hcl 50 Mg Tab PO 06/28/24 08:59 50 mg QAM MELISSA Administration Vitamin D 50 mcg 05/29/24 09:00 05/30/24 08:25 Cholecalciferol 25 Mcg (1000 Units) Tab PO 06/28/24 08:59 50 mcg DAILY MELISSA Administration Past Medical History Medical History Hypercholesterolemia Osteoarthritis Anxiety History of diverticular abscess of colon PT REPORTS HX ABCESS OF COLON/SURGERY FOR History of basal cell carcinoma & REMOVED Diverticulitis, colon BPH w urinary obs/LUTS DENIES Adenomatous colon polyp HX COLON POLYP Exercise / Class Metabolic Activity II 4-5 Yardwork/Stairs/Walk up hill Past Family History Family History Father Dementia Mother Macular degeneration Sister Breast cancer Brother Myocardial infarction Atrial fibrillation Denies family history of Ovarian cancer Prostate cancer Lung cancer Colorectal cancer Cancer Past Surgical History Surgical History History of cataract surgery LEFT/ RIGHT History of colonoscopy History of arthroscopy of left knee History of tonsillectomy S/P colectomy HX Partial, Sigmoid S/P lymph node biopsy Past Anesthesia History No Hx of Anesthesia Complications and No Family Hx of Anesthesia Complications History of PONV No Hx of PONV and No Hx of Motion Sickness Social History Smoking Status: Former smoker tobacco type: cigarettes Do You Dip or Chew Tobacco: No Hx Alcohol Use: Yes Alcohol type: hard liquor alcohol intake frequency: holidays/special occasions only Hx Substance Use: Yes (few months ago, not regularly) substance use type: marijuana Substance Use Type Other:: MARIJUANA> JUST AVERAGE FEW TIMES PER WEEK Physical Exam Vital Signs Last Vital Signs Temp 36.7 C 05/30/24 08:01 Pulse 120 H 05/30/24 08:01 Resp 18 05/30/24 08:01 BP 121/87 05/30/24 08:01 Pulse Ox 95 05/30/24 08:01 O2 Del Method Room Air 05/30/24 08:01 ENMT Mouth: no dentition abnormality Thyromental Distance: > or= 3.5 Finger Breadths Mallampati Class: II Neck normal visual inspection Respiratory normal respiratory effort Auscultation: lungs clear to auscultation bilaterally Cardiovascular Rate/Rhythm: + tachycardic; + abnormal rhythm (afib on monitor) Psychiatric Orientation: alert Testing Laboratory Results 05/30/24 05:55 05/30/24 05:55 PT 10.7 Seconds (9.0-12.0) 05/28/24 11:55 INR 1.0 (0.9-1.1) 05/28/24 11:55
[2024-05-30] MEDS ORDERED: PROPOFOL IV EMULSION 10 MG/ML 20 ML VIAL IV ONE (10:52)
--- NOTE | 2024-05-30 11:01 | Anesthesiology Progress Note ---
Date of Service May 30, 2024 Anesthesia Post Procedure Vital Signs Vital Signs: Temp Pulse Pulse Resp BP Pulse Ox Pulse Ox 05/30/24 10:43 36.7 C 127 H 19 133/103 H 98 05/30/24 08:01 36.7 C 120 H 18 121/87 95 05/30/24 03:08 36.6 C 105 H 18 121/82 94 05/30/24 00:09 91 H 05/29/24 23:09 36.7 C 81 16 123/79 96 05/29/24 20:13 94 05/29/24 15:07 36.6 C 93 H 18 110/78 94 05/29/24 11:13 36.8 C 91 H 18 110/72 96 O2 Del Method O2 Del Method O2 Flow Rate 05/30/24 10:43 Oxymask 6 05/30/24 08:01 Room Air 05/30/24 03:08 Room Air 05/30/24 00:09 05/29/24 23:09 Room Air 05/29/24 20:13 Room Air 05/29/24 15:07 Room Air 05/29/24 11:13 Room Air Transfer of Care Handoff Completed per policy Notes Mental Status: alert / awake / arousable Patient Amnestic to Procedure: Yes Nausea / Vomiting: adequately controlled Pain: adequately controlled Airway Patency, RR, SpO2: stable & adequate BP & HR: stable & adequate Hydration State: stable & adequate Anesthetic Complications: no major complications apparent
--- NOTE | 2024-05-30 11:06 | Cardioversion ---
Date of Service May 30, 2024 PG Electrical Cardioversion Rp Electrical Cardioversion Report Indication: Atrial fibrillation with rapid ventricular sponsor. Written consent was obtained after the risks and benefits were explained, including but not limited to pain, thermal burn, allergic reaction, aspiration, airway obstruction, laryngospasm, infection, hypotension, and cardiorespiratory arrest. Sedation was supervised by Anesthesiology. The biphasic defibrillator was set to 150 joules of energy and synched. After confirmation of sedation and "all clear" safety check the synchronized shock was delivered. This resulted in successful conversion of the dysrhythmia back into sinus rhythm. See nursing notes for dosages and times. There were no complications and the patient recovered uneventfully from the procedure. Coding Level of Care Code 42748 CARDIOVERSION, ELECTIVE Additional Codes Electrical Cardioversion Report ([id number])
[2024-05-30 11:31] VITALS: RESP 18; TEMP 97.9
--- NOTE | 2024-05-30 12:01 | Cardiology Progress Note ---
Date of Service May 30, 2024 Assessment & Plan (1) Paroxysmal atrial fibrillation: (2) Supraventricular tachycardia: (3) On apixaban therapy: (4) On amiodarone therapy: Plan Doing well after successful electrical cardioversion this morning. Would discharge on amiodarone 200 mg twice daily, discontinue metoprolol but have 50 mg PRN dose available for any breakthrough tachycardia. Continue anticoagulation with apixaban. If rhythm remains sinus, okay for discharge later today. Has cardiology follow-up at [facility] 06/12/2024 and has scheduled follow-up appoint with Dr. Cali 07/31/2024. Admission and Anticipated Discharge Date Admission Date: May 28, 2024 Subjective Uneventful night, patient remains asymptomatic. Telemetry showed persistent atrial fibrillation with highly variable rate (90- 170 bpm). Patient underwent electrical cardioversion, no complications, rhythm now sinus at 70 bpm. Physical Exam Physical Exam: No distress. Normotensive. Pulse 74 bpm and regular. Respirations 18 unlabored. Skin: no ecchymoses or generalized lesions. HEENT: unremarkable. Neck: JVP at the clavicle at 90 degrees, no carotid bruits. Lungs: clear. Cardiac: Irregular/tachycardic rhythm, normal S1-2, no obvious murmur. Abdomen: benign. Extremities: no edema, pulses intact. Neurologic: normal affect and conversation, nonfocal. Results & Data Laboratory Results Normal electrolytes, BUN 16, creatinine 0.74. PG Care Time/CCT Total # of Minutes Spent Total Time Spent with Patient: Total time spent is greater than 50% in coordination of care (as documented) at patient's floor/unit and/or counseling patient: Coding Level of Care Code 54996 SUB INP/OBS CARE 3/50MIN Diagnoses Paroxysmal atrial fibrillation I48.0 Supraventricular tachycardia I47.1 On apixaban therapy Z79.01 On amiodarone therapy Z79.899
--- NOTE | 2024-05-30 14:27 | Electrocardiogram Report ---
Test Reason : Blood Pressure : */* mmHG Vent. Rate : 67 BPM Atrial Rate : 67 BPM P-R Int : 160 ms QRS Dur : 92 ms QT Int : 394 ms P-R-T Axes : 48 53 47 degrees QTcB Int : 416 ms Normal sinus rhythm Left atrial enlargement Abnormal ECG When compared with ECG of 28-May-2024 12:00, Sinus rhythm has replaced Atrial fibrillation Vent. rate has decreased by 66 bpm Confirmed by Jackson Bourgeois ([id number]) on 05/30/2024 2:26:53 PM Referred By: REFERRED SELF Confirmed By: Jackson Bourgeois
--- NOTE | 2024-05-30 15:25 | Discharge Summary ---
Date of Service May 30, 2024 Admission HPI Per Admitting Provider Bharat is a 74-year-old male with a past medical history of paroxysmal A-fib, SVT, hyperlipidemia recently discharged 05/02/2024 after an admission for near syncope with suspected A-fib versus a flutter with improvement and subsequent conversion after IV metoprolol at that time who presents to the ER for cardiac evaluation and is found to be in A-fib with RVR rates in 130s. Patient was seen for follow-up by outpatient cardiology 05/06/2024. Tradjenta round was discontinued as it was not felt to be working and beta-kendell was uptitrated to 100 mg and then 150 mg succinate daily. He was referred to [facility] for ablation consideration. Was noted to have 1 documented episode of SVT in the past Sent to the ER today with dizziness nausea and sweating which started about 11 AM. EKG A-fib with RVR rates 130s. Per patient: Bharat is seen at the bedside. He reports that he is in the hospital last month for A-fib with a rapid rate, which he generally did not feel Was seen 04/20/2024. A-fib RVR at that time. Multiple episodes of A-fib by his home Kardiamobile. He presents to the hospital at that time after he notices heart rate was elevated on a home cardiac monitoring device and then when his heart was fast had a feeling of presyncope. He reports during his last hospitalization he was given metoprolol, and converted to sinus rhythm. After this he was started on Multaq for attempted maintenance of sinus and started on anticoagulation. He has been on continuous anticoagulation since the beginning of April. He reports he has not missed any doses. Unfortunately his cardiology follow-up he had had intermittent return to A-fib with RVR and as the Multaq was not effective for maintaining sinus this was discontinued, and his metoprolol was gradually upgraded to 150 mg succinate daily which she has been taking for the last several weeks and has not missed any doses. Despite this he has had multiple recurrences of A-fib RVR with rates ranging from 100s to the 150s despite being on metoprolol 150s and May 06. Uses a home Kardiomobile device and on this has been in the 140s on 05/19 Reports he has had no chest pain or chest pressure at any time. Does tend get sweaty when walking dogs for center cutting paws but has no limiting dyspnea or chest pain with this. His episode of lightheadedness today was accompanied by pouring sweat/diaphoresis. He denies a history of sleep apnea. Does not use alcohol regularly. No recent illnesses or diarrhea No tobacco use Medical History: Reviewed Medications: Reviewed Surgical History: Reviewed Family history: Reviewed Allergies: Reviewed Social History: No tobacco use. Rare social etoh Code Status: Full Admission Exam Per Admitting Provider General: A&Ox3. NAD. Cooperative. HEENT: Atraumatic, normocephalic. Vision/hearing intact Pulm: CTAB A&P. -wheezes, -rales, -rhonchi. Symmetrical chest rise. No increased work of breathing. No respiratory distress. Cardiac: irir, -mrg. Radial pulses intact and symmetrical. No JVD Abdominal: Nontender, nondistended, soft. BS present. Ext: warm, dry. Principal Diagnosis Afib RVR Discharge Exam Constitutional WD/WN, vitals as above Respiratory normal respiratory effort, lungs clear to auscultation Cardiovascular Rate/Rhythm: + tachycardic and + irregularly irregular Skin no rashes, warm and dry Psychiatric A+Ox3, euthymic affect Discharge Data Allergies Allergy/AdvReac Type Severity Reaction Status Date / Time No Known Allergies Allergy Verified 05/06/24 11:15 Consultations 05/28/24 16:07 ED Decision to Admit Stat 05/28/24 20:13 Consult Cardiology Routine 05/30/24 10:09 Consult Anesthesiology Routine Procedures Performed Operation Date: 05/30/24 10:30 Actual Procedures p Cardioversion - Jackson Bourgeois MD Hospital Course (1) Paroxysmal atrial fibrillation: (2) Hyperlipidemia: Plan 74-year-old male with a past medical history of paroxysmal A-fib, SVT, hyperlipidemia recently discharged 05/02/2024 after an admission for near syncope with suspected A-fib versus a flutter with improvement and subsequent conversion after IV metoprolol at that time who presented to the ER for cardiac evaluation and was found to be in A-fib with RVR rates in 130s. A-fib with RVR Last echo 04/20/2024: EF 60 to 65%, no regional wall motion abnormalities. Moderate concentric LVH. A-fib RVR at that time Failed Multag trial, was on metoprolol 150 mg succinate daily at time of admission has been on continuous anticoagulation since the beginning of April, [facility] Cardiology consulted: - Metoprolol discontinued, started on Amiodarone - Inadequate rate control with medication alone, pt successfully cardioverted 05/30/24 with return to NSR - Discharge Medications: - Amiodarone 200mg PO BID - Metoprolol Tartrate 50mg PRN for breakthrough tachycardia - Pt has [facility] cardiology consult for possible ablation 06/12 - Cardiology follow up with Dr. Waters 07/31/2024 Total Time Total Time Spent Total Time Spent (In Minutes): see attending attestation Discharge Plan Discharge Items Patient Disposition: Home - Self-Care Reason For Visit: AFIB RVR Discharge Diagnosis: AFIB RVR Activity: Resume your previous activity Non-emergency contact: Primary Care Provider and Civil Cad Tech Call non-emergency contact if: you have any medication questions and your symptoms worsen Follow-up/Referrals: ProReyes MD [Primary Care Provider] - 06/10/24 10:20 am (Hospital follow up with Bethanie REECE on May at 10:20am.) Diet: Heart Healthy Addtl Attending Provider Instructions: You were admitted due to A-fib with persistently elevated heart rate. You underwent cardioversion with successful conversion back to normal sinus rhythm. Following discharge, please keep your appointments for outpatient cardiology follow up. 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 Pending Studies at Discharge: No Stand-Alone Forms: My Materialise, Smoking Cessation Medications and DC Order Prescriptions: New amiodarone 200 mg Tablet 200 mg PO BID 30 Days Qty: 60 0RF metoprolol tartrate 50 mg tablet 50 mg PO .prn PRN (Reason: breakthrough tachycardia) 30 Days Qty: 30 2RF Continued venlafaxine 50 mg tablet 50 mg PO QAM Qty: 90 3RF Eliquis 5 mg tablet 5 mg PO BID Qty: 180 3RF pravastatin 20 mg tablet 20 mg PO HS Qty: 90 3RF loratadine 10 mg capsule 10 mg PO DAILY PRN (Reason: Allergy Symptoms) ascorbic acid (vitamin C) 500 mg tablet 500 mg PO BID diclofenac sodium [Voltaren Arthritis Pain] 1 % gel 4 g topical QID PRN (Reason: Pain) Rx Instructions: apply to single knee glucosamine sulfate [Glucosamine] 500 mg tablet 500 mg PO BID fluticasone propionate 50 mcg/actuation spray,suspension 1 sprays INTNAS DAILY PRN (Reason: Allergy Symptoms) coenzyme Q10 100 mg capsule 100 mg PO QAM PreserVision AREDS [id number] capsule 1 cap PO BID cholecalciferol (vitamin D3) [Vitamin D3] 50 mcg (2,000 unit) Capsule 50 mcg PO DAILY Discontinued metoprolol succinate 100 mg tablet extended release 24 hr 150 mg PO DAILY Qty: 135 3RF Discharge Orders: Discharge Order (Routine); Ordered 05/30/24 Ordered By: Derrick Mead Admission Data Admit Date/Time: 05/28/24 16:50 Attending Provider: Alpa Herzog Admit Provider: Laith Nails Primary Care Provider: Reyes Poe Other Providers: Laith Nails; Jackson Bourgeois; Jose Forbes; Reyes Russo; Norbert Finnegan; Mirza Waters; Finn Cazares Jr; Christian Paige; April Newton; Radha Wakefield; Martin Castle; Martin Chowdhury; Joseph Vargas; Rosalee Torres; Luis Carlos Guadalupe; Luisana Ac; Bernabe Guillermo; Armando Rae; Lul Meyer Supervising Physician Co-Signing Physician Notes Attending Physician Supervision Note: I independently interviewed and examined the patient and verified the kramer history and physical, reviewed labs and image studies and agree with findings and care plan noted above. Resident Activity Tracking Resident Involvement: Resident Care Provided Care Provided: Adult [facility] Medicine
[2024-05-30 15:37] VITALS: BP 130/67; PULSE 78; O2SAT 95
== END 2024-05-30 17:50 | disposition home or self-care (01) | DRG 310 ==
LOC: SUATTDRO → ED 11:46 → SUATTDRO 16:50 → EDINP 16:50 → 2E 20:30